=== PATIENT | female | born 1980 | race African-American/Black ===

== ENCOUNTER 2018-06-19 07:43 | Emergency (ER) | payer SELFPAY ==
--- NOTE | 2018-06-19 09:46 | RAD REPORT ---
EXAM DESCRIPTION: US - Extremity Nonvascular Complete - 06/19/2018 8:57 am CLINICAL HISTORY: left breast swelling and tenderness, rule out abscess COMPARISON: No comparisons TECHNIQUE: Real-time sonographic evaluation of the area of interest inferior left breast was perform ed. FINDINGS: Ill-defined 3.5 x 3.2 x 2.6 cm subcutaneous complex lesion is present in the area of inter est with surrounding blood flow, probably representing an abscess. Direct clinical evaluation is advi sed.
[2018-06-19] MEDS ORDERED: LIDOCAINE 2% MPF 5 ML VIAL ONE (10:12)
[2018-06-19] MEDS ORDERED: ONDANSETRON 4 MG (ODT) TAB ONE (10:35)
[2018-06-19] MEDS ORDERED: IBUPROFEN 400 MG TAB ONE (10:39)
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
--- NOTE | 2018-06-19 10:49 | EDPHYS ---
Physician Documentation [facility] Name: Rabia Sosa Age: 38 yrs Sex: Female : 1980 Arrival Date: 06/19/2018 Time: 07:46 Bed 5 Private MD: None, None ED Physician Jadiel Kirk HPI: 06/19 08:35 This 38 yrs old Black Female presents to ER via Ambulatory with complaints of Abscess, rn Congestion. 08:35 the patient presents with a swollen area of the left breast. Description: The affected rn area is small, localized, swollen. Onset: The symptoms/episode began/occurred 1 week(s) ago. Possible cause(s): unknown. Severity of symptoms: At their worst the symptoms were mild, in the emergency department the symptoms are unchanged. The patient has experienced a previous episode. Reports 1 week of swelling under left breast, no drainage, has been using compress and ointment, not improving, no fever, also reports headaches for 2 years, seen here before with normal ct but doesn't have insurance so hasn't followed up with neurology, no new symptoms. . 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 - Social history:: Smoking status: Patient/guardian denies using tobacco. - Ebola Screening: : Patient negative for fever greater than or equal to 101.5 degrees Fahrenheit, and additional compatible Ebola Virus Disease symptoms Patient denies exposure to infectious person Patient denies travel to an Ebola-affected area in the 21 days before illness onset No symptoms or risks identified at this time. - Family history:: not pertinent. - Hospitalizations: : No recent hospitalization is reported. ROS: 08:35 Constitutional: Negative for fever, chills, and weight loss, Eyes: Negative for injury, rn pain, redness, and discharge, Neck: Negative for injury, pain, and swelling, Cardiovascular: Negative for chest pain, palpitations, and edema, Respiratory: Negative for shortness of breath, cough, wheezing, and pleuritic chest pain, Abdomen/GI: Negative for abdominal pain, nausea, vomiting, diarrhea, and constipation, MS/Extremity: Negative for injury and deformity, Skin: Negative for injury Neuro: Negative for weakness, numbness, tingling, and seizure. Exam: 08:35 Constitutional: Overweight female, no acute distress, appears anxious and is tearful rn Chest/axilla: Under left breast area of 4cm ovoid area with induration, subcentimeter area of fluctuance in center of area. No head or drainage. Vital Signs: 07:50 BP 136 / 74; Pulse 100; Resp 20; Temp 98.7; Pulse Ox 100% ; Weight 181.44 kg; Height 5 bp ft. 11 in. (180.34 cm); Pain 10/10; 09:11 BP 149 / 80; Pulse 94; Resp 16; Pulse Ox 100% ; bp 07:50 Body Mass Index 55.79 (181.44 kg, 180.34 cm) bp Procedures: 10:47 I \T\ D: Incision and drainage was performed for an abscess of the left chest Prepped rn with Betadine, Anesthetized with 3 ml's 1% Lidocaine. Incised with #11 blade. Drained moderate amount purulent fluid. serosanguinous fluid. Packed with iodoform gauze, Dressing: sterile 4x4 gauze. MDM: 08:08 Patient medically screened. rn 10:48 Differential diagnosis: abscess. Data reviewed: vital signs, nurses notes, and as a rn result, I will discharge patient. Counseling: I had a detailed discussion with the patient and/or guardian regarding: the historical points, exam findings, and any diagnostic results supporting the discharge/admit diagnosis, the need for outpatient follow up, to return to the emergency department if symptoms worsen or persist or if there are any questions or concerns that arise at home. Special discussion: I discussed with the patient/guardian in detail that at this point there is no indication for admission to the hospital. It is understood, however, that if the symptoms persist or worsen the patient needs to return immediately for re-evaluation. 06/19 10:48 Order name: Wound Culture rn 06/19 08:57 Order name: Extremity Nonvascular Complete; Complete Time: 09:50 EDMS Administered Medications: 10:25 Drug: Zofran 4 mg Route: PO; jl7 10:51 Follow up: Response: No adverse reaction; Nausea is decreased jl7 10:52 Drug: Ibuprofen 800 mg Route: PO; jl7 10:59 Follow up: Response: Medication administered at discharge. jl7 Disposition: 06/19/18 10:48 Discharged to Home. Impression: Cutaneous abscess of chest wall. - Condition is Stable. - Discharge Instructions: Skin Abscess, Incision and Drainage, Wound Packing, Incision and Drainage, Care After. - Prescriptions for Clindamycin HCl 300 mg Oral Capsule - take 1 capsule by ORAL route every 6 hours for 10 days; 40 capsule. - Medication Reconciliation Form, Thank You Letter, Antibiotic Education, Prescription Opioid Use form. - Follow up: Private Physician; When: As needed; Reason: Recheck today's complaints, Re-evaluation by your physician. - Problem is an ongoing problem. - Symptoms have improved. Signatures: Dispatcher [employer] EDMS Jadiel Kirk MD MD rn Leal, Jahala, RN RN jl7 Peltier, Brian RN RN bp Corrections: (The following items were deleted from the chart) 08:42 08:36 Rp Exam Limited+[id number] ordered. EDOH EDMS 08:46 08:42 Follow Up Breast Axilla Ltd ordered. EDOH EDMS 08:57 08:46 BREAST/AXILLA, LIMITED ordered. EDOH EDMS 11:01 10:48 06/19/2018 10:48 Discharged to Home. Impression: Cutaneous abscess of chest wall. jl7 Condition is Stable. Forms are Medication Reconciliation Form, Thank You Letter, Antibiotic Education, Prescription Opioid Use. Follow up: Private Physician; When: As needed; Reason: Recheck today's complaints, Re-evaluation by your physician. Problem is an ongoing problem. Symptoms have improved. rn
[2018-06-19 11:13] VITALS: TEMP 98.7; O2SAT 100
[2018-06-19 11:15] VITALS: BP 149/80
== END 2018-06-19 11:01 | disposition home or self-care (01) ==
LOC: ER 07:43
PROC: 0J960ZZ Drainage of Chest Subcutaneous Tissue and Fascia, Open Approach (ICD-10-PCS; principal; 2018-06-19)
DX: L02.213 Cutaneous abscess of chest wall (principal); Z88.5 Allergy status to narcotic agent
CPT/HCPCS: 76881; 87070; 87077; 87186; 87205; 99285

== ENCOUNTER 2019-01-22 11:32 | Day surgery (SDC) | payer OTHER ==
[2019-01-22] MEDS: Ringers Lactate 1,000 ML IV ONE (11:52)
[2019-01-22 11:55] LABS: Absolute Monocytes 0.5 K/uL (0.1-1.3); Absolute Neutrophil 4.2 K/uL (1.8-8.0); Basophils % 0.9 % (0-1.3); Eosinophils % 6.6 % (0-4.4); Hematocrit 38.8 % (36.0-45.0); Lymphocytes % 35.5 % (15.3-44.8); MPV 9.3 fL (7.6-11.3); Monocytes % 6.2 % (3.3-12.3)
[2019-01-22] MEDS ORDERED: LIDOCAINE 1% MPF 30 ML VIAL ONE (12:13)
[2019-01-22] MEDS ORDERED: LIDOCAINE 1% W/EPI 1:100,000 MDV 50 ML VIAL ONE (12:13)
[2019-01-22] MEDS ORDERED: LIDOCAINE 1% MPF 5 ML VIAL ONE (12:18)
[2019-01-22] MEDS ORDERED: FENTANYL CITR 100 MCG/2 ML ONE ×3 (12:18→14:38)
[2019-01-22] MEDS ORDERED: PROPOFOL 200 MG/20 ML VIAL IV ONE ×2 (12:18→13:41)
[2019-01-22] MEDS ORDERED: KETOROLAC 30 MG/ML INJ ONE (12:56)
[2019-01-22] MEDS ORDERED: ONDANSETRON 4 MG/2 ML VIAL ONE (13:09)
[2019-01-22] MEDS ORDERED: SUCCINYLCHOLINE 20 MG/ML (10 ML) IV ONE (14:17)
--- NOTE | 2019-01-22 14:53 | EKG ---
Test Date: 2019-01-22 Test Time: 11:27:40 Steamfitter Supervisor: MAIKEL MEASUREMENT RESULTS: Intervals: Rate: 63 OK: 176 QRSD: 92 QT: 374 QTc: 382 [place]: P: 59 OK: 176 QRS: 40 T: 11 INTERPRETIVE STATEMENTS: Normal sinus rhythm Normal ECG Compared to ECG 04/10/2016 23:20:20 T-wave abnormality no longer present Electronically Signed On 01-22-19 14:52:53 CDT by Jonathan Lewis
[2019-01-22] MEDS ORDERED: ONDANSETRON HCL 40 MG/20 ML VIAL ONE (15:25)
[2019-01-22] MEDS ORDERED: PROMETHAZINE 25 MG/ML VIAL ONE (15:40)
--- NOTE | 2019-01-22 15:42 | P.BOP ---
Preoperative diagnosis: temporal arteritis (presumed) Postoperative diagnosis: temporal arteritis (presumed) Primary procedure: right temporal artery biopsy Tree Trimmer: KURT LAM Estimated blood loss: 10ml Specimen: Right temporal artery Anesthesia: General Complications: None Implants: none Fluids & blood products: see anesthesia record Transferred to: Recovery Room Condition: Good
[2019-01-22 16:43] VITALS: TEMP 97.3; O2SAT 100
[2019-01-22 17:04] VITALS: BP 125/67
--- NOTE | 2019-02-02 03:52 | OP ---
Date of Procedure: 01/22/2019 Surgeon: Becca Burgos MD Sheet Heater: Heidy Hodge Preoperative Diagnosis: Presumed temporal arteritis. Postoperative Diagnosis: Presumed temporal arteritis. Procedure: Right temporal artery biopsy. Estimated Blood Loss: 10 mL. Specimen: Right temporal artery fragment. Anesthesia: General. Complications: None. Findings: Procedure was more difficult than average due to the patient's obesity. Indication For Procedure: Ms. Sosa presented to the E[facility] Clinic with chronic headache and right temporal tenderness. Her sedimentation rate was mildly elevated at 28, but due to her clinical presentation, decision was made to proceed with temporal artery biopsy to evaluate for temporal arteritis. Presumptive treatment of temporal arteritis was deferred in light of the patient 's diagnosis of diabetes mellitus and which oral steroid use carried a high risk for severe hyperglycemia. The risks, benefits, and alternatives to the procedure were discussed with the patient. Procedure In Detail: The patient was brought to the operating room. She was placed under general anesthesia. Her intubation was difficult and complicated by severe morbid obesity with the patient weight greater than 400 pounds. After successful intubation, the head of bed was turned approximately 45 degrees for better exposure of the right side of the face. The face, bahai, and neck were prepped with Betadine and draped in a sterile fashion. Doppler was used to detect blood flow and guide initial incision. Strong signal was found in a single point of the bahai and a small incision was initially made in this area. The skin and subcutaneous tissue were carefully dissected, but the artery was very difficult to locate. Repeated use of Doppler revealed signal. A small venous vessel was found and located with Doppler. This had a typical venous signal, but with compression a strong arterial Doppler signal was located. The decision was made to ligate this vein in order to better dissect in this area. After thorough dissection in this area, the vessel could not be located and on further inspection, the plane of dissection was deeper than intended and was not consistent with the location of the temporal artery. The incision was then lengthened in order to provide a larger field of dissection. Palpable pulse in front of the helix was noted and the posterior skin flap was elevated in order to provide better visualization of this area after retraction of the posterior skin flap. The artery was located and a 1 to 1.5 cm section of the artery was dissected. The artery was ligated and tied and the specimen was sent to pathology for further evaluation. The wound bed was thoroughly irrigated and the incision was closed in a layered fashion using resorbable sutures. The patient was then returned to care of Anesthesia for awakening and extubation in the operating room, which proceeded without difficulty. The patient will be dispositioned pending results of the biopsy. LIEN Voice ID: [id number] Report ID: [id number] DELBERT
== END 2019-01-22 17:10 | disposition home or self-care (01) ==
LOC: OR 11:32
PROVIDERS: ATTEND Otolaryngology
PROC: 03BS0ZX Excision of Right Temporal Artery, Open Approach, Diagnostic (ICD-10-PCS; principal; 2019-01-22 12:00)
DX: R51 Headache (principal); K21.9 Gastro-esophageal reflux disease without esophagitis; E66.01 Morbid (severe) obesity due to excess calories; Z68.44 Body mass index [BMI] 60.0-69.9, adult; F17.210 Nicotine dependence, cigarettes, uncomplicated; Z79.899 Other long term (current) drug therapy
CPT/HCPCS: 36415; 81025; 82962; 85025; 88305; 93005; J0330; J2405; J2550; J2704; J3010

== ENCOUNTER 2023-02-03 13:44 | Emergency (ER) | payer BC ==
--- OUTSIDE RECORDS SUMMARY | 2023-02-03 13:51 | XMS REPORT | Continuity of Care Document ---
:1980 Author Organization [facility] t Address [address] [place] [address] Care Team Providers Name Role Phone JEANNINE MCNAMARA Primary Care Physician Unavailable SHERRILL BAH Attending Clinician Unavailable KALA SALAZAR Attending Clinician Unavailable IVORY MCKEE Attending Clinician Unavailable Doctor Unassigned, [place] Attending Clinician Unavailable STEVE ARAUZ Attending Clinician Unavailable Steve Arauz MD Attending Clinician Jeannine Mcnamara V Attending Clinician Unavailable Marcia ESPINOSA, [facility] Attending Clinician ABBE CARLTON Attending Clinician Unavailable CARLITOS_MARQUIS_Lefty_Alicia Attending Clinician Unavailable Guilherme_Didier Attending Clinician Unavailable Sherrill Bah MD Attending Clinician KAUR TREJO Attending Clinician Unavailable Only, Adc Test Attending Clinician Unavailable Pob, [facility] Main Attending Clinician Unavailable BALWINDER JIMENEZ Attending Clinician Unavailable Balwinder Jimenez DO Attending Clinician MAGUI LOCKHART Attending Clinician Unavailable Jah ESPINOSA, Sabina Garcia Attending Clinician Magui oLckhart PA-C Attending Clinician Brendon LEDESMA, Rubi Li Attending Clinician Clyde ESPINOSA, [place] Cedeno Attending Clinician Caden Monroe Attending Clinician Logan ESPINOSA, Pat Attending Clinician CADEN MOSCOSO Attending Clinician Unavailable SHERRILL BAH Admitting Clinician Unavailable STEVE ARAUZ Admitting Clinician Unavailable Jeannine Mcnamara V Admitting Clinician Unavailable [facility] Admitting Clinician Unavailable Guilherme_Didier Admitting Clinician Unavailable Sherrill Bah MD Admitting Clinician Jah ESPINOSA, Sabina Garcia Admitting Clinician Logan ESPINOSA, Pat Admitting Clinician Payers Payer Name Policy Type Policy Number Effective Date Expiration Date S donaldo [employer] [place] [id number] 2019 00:00:00 [place] [id number] 2019 00:00:00 [place] Problems Condition Condition Condition Status Onset Resolution Last Treating Co mments Source Name Details Category Date Date Treatment Clinician Date Type 2 Type 2 Problem Active [place] diabetes Diabetes 2-18 Family mellitus Mellitus 00:00: Practi c 00 e Gastroesop Gastroesop Problem Active V illage hageal hageal 2-18 Family reflux Reflux 00:00: Practic disease Disease 00 e Morbid Morbid Disease Active Univers obesity obesity 09-04 [place] of with [place] mass index 00 Me dical of 50 or of 50 or Branch higher higher Ovarian Ovarian Disease Active Univers torsion torsion 1-01 ity of 00:00: [place] 00 Medical Branch Right Right Disease Active Univers lower lower 09-03 ity of quadrant quadrant 00:00: [place] abdominal abdominal 00 Medi brandy pain pain Branch Cellulitis Cellulitis Disease Active 2019-09 U nivers of right of right 106 ity of lower lower 00:00: [place] extremity extremity 00 Medi brandy Branch Papanicola Papanicola Disease Active Overview : Univers ou smear ou smear 09-10 Formattin ity of of cervix of cervix 00:00: [place] of this [place] with high with high 00 note Medi brandy grade grade might be Branch squamous squamous different intraepith intraepith from the elial elial original. lesion lesion 06/2013- (HGSIL) (HGSIL) LEEP - negative Excessive Excessive Disease Active Overview: Univers or or 108 Formattin ity of frequent frequent 00:00: g of this [place]ammad as menstruati menstruati 00 note Me dical on on might be Branch different from the original. emb 09/10/2013 NO SHOW NO SHOW Disease Active Univers 8-12 ity of 00:00: [place] 00 Medical Branch Eosinophil Eosinophil Disease Active U nivers ia ia 7-06 ity of 00:00: [place] 00 Medical Branch Follow-up Follow-up Disease Active Overview: Univers examinatio examinatio 8-14 Formattin ity of n, n, 00:00: g of this [place] following following 00 note Medi brandy other other might be Branch surgery surgery different from the original. F/U for infected incision and hospitali zation 04/02-02/2007 Elevated Elevated Disease Active Unive rs blood blood 6-20 ity of pressure pressure 00:00: [place] reading reading 00 Medical without without Branch diagnosis diagnosis of of hypertensi hypertensi on on Headache Headache Problem Active 2021-01-31 Memoria (finding) (finding) 00:27:00 l Active [place] Problem 01/31/2021 [facility] Gastritis Gastritis Problem Active 2021-01-31 Memoria (disorder) (disorder) 00:27:00 l Active [place] Problem 01/31/2021 [facility] Allergies, Adverse Reactions, Alerts Allergy Allergy Status Severity Reaction(s) Onset Inactive Treating Comm ents Source Name Type Date Date Clinician Codeine Propensi Active Rash Methodi ty to 4-18 st adverse 00:00: Hospita reaction 00 l s to drug CODEINE DRUG Active Hives Univers INGREDI 6-20 ity of 00:00: [place] 00 Medical Branch Codeine Propensi Active Hives Univers ty to 6-20 ity of adverse 00:00: [place] reaction 00 Medical s Branch codeine codeine Active Moderate Ag De [facility] Social History Social Habit Start Date Stop Date Quantity Comments Source [facility] History of tobacco Smokes tobacco [facility] use daily Hospital Exposure to 2022-10-21 2022-10-31 Not sure University of SARS-CoV-2 (event) 00:00:00 07:41:00 [facility] History of Social 2022-06-01 2022-06-[address] function 00:00:00 00:00:00 Hospital Alcohol intake 2022-01-06 2022-01-06 Lifetime [facility] 00:00:[facility] 00:00:00 [facility] (finding) Tobacco use and 2020-12-31 2020-12-31 Smokeless tobacco Un iversity of exposure 00:00:00 00:00:00 non-user [facility] Tobacco Comment 2020-12-31 2020-12-31 smokes 10 Universit y of 00:00:00 00:00:00 cigarettes per [facility] day Branch Sex Ass[birth year] At [birth year] [facility] 00:00:00 00:00:00 Hospital Smoking Status Start Date Stop Date Source Heavy Tobacco Smoker [facility] Social History 2020-12-24 19:03:30 [facility] Medications Ordered Filled Start Stop Current Ordering Indication Dosage Frequency Signature Comments Components Source Medication Medication Date Date Medication? Clinician (SIG) Name Name NaCl 0.9% 2022- No 1000mL at 999 Uni vers (NS) bolus 10-31-28 mL/hr, ity of infusion 20:45: 21:30 1,000 mL, Hammad as 1,000 mL 00 :00 IV Medical Piggyback, Branch ONCE, 1 dose, On Sun10/31/22 at 1445, STAT ondansetron 2022- No 8mg 8 mg, Slow Univers (ZOFRAN 10-31 IV Push, ity of (PF)) 20:30: 20:34 ONCE, 1 [place] injection 8 00 :00 dose, On Medi brandy mg 10/31/22 at 1430, RAGHAVENDRA FENTanyl PF 2022- No 50ug 50 mcg, Un jessica (SUBLIMAZE 10-31 Slow IV ity o f (PF)) 20:00: 20:25 Push, [place] injection 00 :00 ONCE, 1 Medical 50 mcg dose, On Sun10/31/22 at 1400, STAT metroNIDAZO 2022- No 500mg 500 mg, U nivers LE (FLAGYL) 10-31 Oral, ONCE i ty of tablet 500 18:30: 18:10 NOW, 1 [place] mg 00 :00 dose, On Medical 10/31/22 at 1230, RAGHAVENDRA
Re ason for Anti-Infec tive: Documented Infection< br>Documen ivis Infection Site: Abdominal< br>Duratio n of Therapy: 7 days FENTanyl PF 2022- No 50ug 50 mcg, Un jessica (SUBLIMAZE 10-31 Slow IV ity o f (PF)) 18:00: 17:18 Push, [place] injection 00 :00 ONCE, 1 Medical 50 mcg dose, On Sun10/31/22 at 1200, Routine levoFLOXaci 2022- No 750mg 750 mg, IV Univers n in D5W 10-31 Piggyback, ity of (LEVAQUIN) 17:45: 19:55 ONCE, 1 [place] as 750 mg/150 00 :00 dose, On Medic al mL [facility] Piggyback 10/31/22 at 750 mg 1145, Administer over 90 Minutes, 150 mL
R elif for Anti-Infec tive: Documented Infection< br>Documen ivis Infection Site: Abdominal< br>Duratio n of Therapy: 7 days iopamidol 2022- No [id number] 100mL 100 mL, Univers (ISOVUE 10-31 Intravenou ity o f 370-500 mL) 16:45: 16:45 s, ONCE, 1 [place] injection 00 :00 dose, On Medica l 100 mL Tue Branch 10/31/22 at 1045, Routine FENTanyl PF 2022- No 50ug 50 mcg, Un jessica (SUBLIMAZE 10-31 Slow IV ity o f (PF)) 15:45: 16:06 Push, [place] injection 00 :00 ONCE, 1 Medical 50 mcg dose, On Branch 10/31/22 at 0945, STAT ondansetron Yes [id number] 4mg Take 1 Univers 4 mg 10-31 tablet by ity of disintegrat 00:00: mouth [place] ing tablet 00 every 8 Medica l (eight) Branch hours as needed for Nausea and Vomiting (N/V). ondansetron Yes [id number] 4mg Take 1 Univers 4 mg - tablet by ity of disintegrat 00:00: mouth [place] ing tablet 00 every 8 Medica l (eight) Branch hours as needed for Nausea and Vomiting (N/V). ciprofloxac 2022- No [id number] 500mg Take 1 Univers in HCl 500 10-31 tablet by ity of mg tablet 00:00: 05:59 mouth in [place] as 00 :00 the Medical morning Branch and 1 tablet in the evening. Do all this for 10 days. metroNIDAZO 2022- No [id number] 500mg Take 1 Univers LE 500 mg 10-3111 tablet by ity of tablet 00:00: 05:59 mouth in [place] 00 :00 the Medical morning Branch and 1 tablet at noon and 1 tablet in the evening. Do all this for 10 days. docusate 2022- No [id number] 100mg Take 1 Univers (COLACE) 10-31-08 capsule by ity of 100 mg 00:00: 05:59 mouth in [place] capsule 00 :00 the Medical morning Branch and 1 capsule in the evening. Do all this for 7 days. HYDROcodone 2022- No [id number] 1{tbl} Take 1 U nivers -acetaminop 10-31-08 tablet by it y of hen 5-325 00:00: 05:59 mouth [place] mg tablet 00 :00 every 6 Medical (six) Branch hours as needed for Pain (scale 7-10) for up to 7 days. Indication s: acute pain traMADoL 50 2022- No [id number] 50mg Take 1 Uni vers mg tablet -31 10- tablet by ity of 00:00: 00:00 mouth [place] 00 :00 every 6 Medical (six) Branch hours as needed for Pain (scale 7-10) for up to 7 days. Indication s: acute pain esomeprazol Yes 40mg QD Take 40 mg Methodi e (NexIUM) 4-[address] 40 MG 13:02: daily Hospita capsule 04 before l breakfast. esomeprazol Yes 40mg Take 40 mg Univers e (NEXIUM) 6-28 by mouth ity o f 40 mg 18:28: daily with [place] capsule 41 breakfast. Medica l Branch topiramate Yes 50mg Take 50 mg U nivers (TOPAMAX) 6-28 by mouth ity of 25 mg 18:28: daily. [place] tablet 41 Medical Branch metformin 0 Yes 500mg Take 500 Uni vers HCl 6-28 mg by ity of (METFORMIN 18:28: mouth 2 [place] ORAL) 41 (two) Medical times Branch daily. esomeprazol Yes 40mg Take 40 mg Univers e (NEXIUM) 6-28 by mouth ity o f 40 mg 13:28: daily with [place] capsule 41 breakfast. Medica l Branch topiramate Yes 50mg Take 50 mg U nivers (TOPAMAX) 6-28 by mouth ity of 25 mg 13:28: daily. [place] tablet 41 Medical Branch metformin 0 Yes 500mg Take 500 Uni vers HCl 6-28 mg by ity of (METFORMIN 13:28: mouth 2 [place] ORAL) 41 (two) Medical times Branch daily. esomeprazol Yes 40mg Take 40 mg Univers e (NEXIUM) 6-28 by mouth ity o f 40 mg 13:28: daily with [place] capsule 41 breakfast. Medica l Branch topiramate Yes 50mg Take 50 mg U nivers (TOPAMAX) 6-28 by mouth ity of 25 mg 13:28: daily. [place] tablet 41 Medical Branch metformin 2021-0 Yes 500mg Take 500 Uni vers HCl 6-28 mg by ity of (METFORMIN 13:28: mouth 2 [place] ORAL) 41 (two) Medical times Branch daily. topiramate 2020-0 Yes 50mg Take 50 mg U nivers (TOPAMAX) 5-05 by mouth ity of 25 mg 16:52: daily. [place] tablet 25 Medical Branch metformin 2020-0 Yes 500mg Take 500 Uni vers HCl 5-05 mg by ity of (METFORMIN 16:52: mouth 2 [place] ORAL) 25 (two) Medical times Branch daily. topiramate 2020-0 Yes 50mg Take 50 mg U nivers (TOPAMAX) 5-05 by mouth ity of 25 mg 16:52: daily. [place] tablet 25 Medical Branch metformin 2020-0 Yes 500mg Take 500 Uni vers HCl 5-05 mg by ity of (METFORMIN 16:52: mouth 2 [place] ORAL) 25 (two) Medical times Branch daily. simethicone 2020-0 Yes PRN, Univer s (GAS RELIEF 5-05 Starting ity of (SIMETHICON 16:08: Sun01/05/21 [place] [facility])) 40 00 at 1108, Medical mg/0.6 mL Until Branch drops Discontinu ed, Routine, Intra-op simethicone 2020-0 Yes PRN, Univer s (GAS RELIEF 5-05 Starting ity of (SIMETHICON 16:08: Sun01/05/21 [place] [facility])) 40 00 at 1108, Medical mg/0.6 mL Until Branch drops Discontinu ed, Routine, Intra-op lactated 2020- No 1000mL at 42 Unive rs ringers IV 5-05 05-05 mL/hr, ity of infusion 14:15: 14:33 1,000 mL, Hammad as 1,000 mL 00 :00 IV Medical Infusion, Branch ONCE, 1 dose, Sun01/05/21 at 0915, Routine, DSU Pre-op lactated 2020- No 1000mL at 42 Unive rs ringers IV 5-05 05-05 mL/hr, ity of infusion 14:15: 14:33 1,000 mL, [place] as 1,000 mL 00 :00 IV Medical Infusion, Branch ONCE, 1 dose, Sun01/05/21 at 0915, Routine, DSU Pre-op esomeprazol 2020-0 Yes 40mg Take 40 mg Univers e (NEXIUM) 5-05 by mouth ity o f 40 mg 14:00: daily with [place] capsule 14 breakfast. Medica l Branch esomeprazol 2020-0 Yes 40mg Take 40 mg Univers e (NEXIUM) 5-05 by mouth ity o f 40 mg 14:00: daily with [place] capsule 14 breakfast. Medica l Branch metformin 2020-0 Yes 500mg Take 500 Uni vers HCl 4-30 mg by ity of (METFORMIN 17:37: mouth 2 [place] ORAL) 21 (two) Medical times Branch daily. metformin 2020-0 Yes 500mg Take 500 Uni vers HCl 4-30 mg by ity of (METFORMIN 17:37: mouth 2 [place] ORAL) 21 (two) Medical times Branch daily. topiramate 2020-0 Yes 50mg Take 50 mg U nivers (TOPAMAX) 4-30 by mouth ity of 25 mg 15:58: daily. [place] tablet 05 Medical Branch topiramate 0 Yes 50mg Take 50 mg U nivers (TOPAMAX) 4-30 by mouth ity of 25 mg 15:58: daily. [place] tablet 05 Medical Branch topiramate 0 Yes 50 mg = 2 Me moria 25 MG Oral 4-23 tab, PO, l Tablet 19:28: Bedtime, # Annmarie nn [Topamax] 00 60 tab, 2 Refill(s), Pharmacy: [id number], 180.34, cm, 04/03/19 11:35:00 CDT, Height, 197.273, kg, 12/24/20 14:03:00 CDT, Weight topiramate 0 Yes 50 mg = 2 Me moria 25 MG Oral 4-23 tab, PO, l Tablet 19:28: Bedtime, # Annmarie nn [Topamax] 00 60 tab, 2 Refill(s), Pharmacy: [facility] #[id number], 180.34, cm, 04/03/19 11:35:00 CDT, Height, 197.273, kg, 12/24/20 14:03:00 CDT, Weight topiramate 2020-0 Yes 50 mg = 2 Me moria 25 MG Oral 4-23 tab, PO, l Tablet 19:28: Bedtime, # Annmarie nn [Topamax] 00 60 tab, 2 Refill(s), Pharmacy: [id number], 180.34, cm, 04/03/19 11:35:00 CDT, Height, 197.273, kg, 12/24/20 14:03:00 CDT, Weight esomeprazol 0 Yes 40mg Take 40 mg Univers e (NEXIUM) 1-13 by mouth ity o f 40 mg 19:57: daily with [place] capsule 49 breakfast. Medica l Branch esomeprazol 0 Yes 40mg Take 40 mg Univers e (NEXIUM) 1-13 by mouth ity o f 40 mg 19:57: daily with [place] capsule 49 breakfast. Medica l Branch esomeprazol 0 Yes 40mg Take 40 mg Univers e (NEXIUM) 1-13 by mouth ity o f 40 mg 19:57: daily with [place] capsule 49 breakfast. Medica l Branch esomeprazol Yes 40mg Take 40 mg Univers e (NEXIUM) 1-13 by mouth ity o f 40 mg 19:57: daily with [place] capsule 49 breakfast. Medica l Branch esomeprazol 0 Yes 40mg Take 40 mg Univers e (NEXIUM) 1-13 by mouth ity o f 40 mg 19:57: daily with [place] capsule 49 breakfast. Medica l Branch esomeprazol Yes 40mg Take 40 mg Univers e (NEXIUM) 1-13 by mouth ity o f 40 mg 19:57: daily with [place] capsule 49 breakfast. Medica l Branch esomeprazol 0 Yes 40mg Take 40 mg Univers e (NEXIUM) 1-13 by mouth ity o f 40 mg 19:57: daily with [place] capsule 49 breakfast. Medica l Branch esomeprazol 0 Yes 40mg Take 40 mg Univers e (NEXIUM) 1-01 by mouth ity o f 40 mg 23:22: daily with [place] capsule 06 breakfast. Medica l Branch esomeprazol 0 Yes 40mg Take 40 mg Univers e (NEXIUM) 1-01 by mouth ity o f 40 mg 23:22: daily with [place] capsule 06 breakfast. Medica l Branch Bupivacaine 2020-0 Yes PRN, Univer s -Epinephrin 09-03 Starting ity of e 21:59: Sun09/03/20 [place] (MARCAINE-E 00 at 1559, Medi brandy PINEPHRINE) Until Branch 0.25 Discontinu %-1:200,000 ed, injection Routine, Intra-op FENTanyl PF Yes 25ug 25 mcg, Uni vers (SUBLIMAZE 09-03 Slow IV ity of (PF)) 21:44: Push, [place] injection 49 Q5MIN PRN, Medi brandy 25 mcg 4 doses, Branch Starting Sun09/03/20 at 1544, Until Discontinu ed, Routine, Pain (scale 7-10), PACU FENTanyl PF Yes 25ug 25 mcg, Uni vers (SUBLIMAZE 09-03 Slow IV ity of (PF)) 21:44: Push, [place] injection 49 Q5MIN PRN, Medi brandy 25 mcg 4 doses, Branch Starting Sun09/03/20 at 1544, Until Discontinu ed, Routine, Pain (scale 4-6), PACU ondansetron 2020- No 4mg 4 mg, Slow Univers (ZOFRAN 09-03 IV Push, ity of (PF)) 21:44: 22:14 PRN, 1 injection 4 49 :00 dose, Medical mg Starting Branch Sun09/03/20 at 1544, Until Discontinu ed, Routine, Nausea and Vomiting (N/V), PACU sodium 0 Yes PRN, Univers chloride 09-03 Starting ity of 0.9 % 20:32: Sun09/03/20 [place] irrigation 00 at 1432, Medic al solution Until Branch Discontinu ed, Intra-op FENTanyl PF 0 202- No 50ug 50 mcg, Un jessica (SUBLIMAZE 09-03 Slow IV ity o f (PF)) 19:30: 18:48 Push, [place] injection 00 :00 ONCE, 1 Medical 50 mcg dose, Fri Branch 09/03/20 at 1330, STAT morpHINE 2020-0 2020- No 4mg 4 mg, Slow Un jessica injection 4 09-03 IV Push, ity of mg 16:30: 15:25 ONCE, 1 [place] 00 :00 dose, Fri Medical 09/03/20 at Branch 1030, STAT ondansetron 2020- No 4mg 4 mg, Slow Univers (ZOFRAN 09-03 IV Push, ity of (PF)) 15:30: 15:38 Administer [place] injection 4 00 :00 over 15 Medic al mg Minutes, Branch ONCE, 1 dose, 09/03/20 at 0930, STAT NaCl 0.9% 2020- No 1000mL at 999 Uni vers (NS) bolus 09-03 mL/hr, ity of infusion 15:15: 15:12 1,000 mL, Hammad as 1,000 mL 00 :00 IV Medical Infusion, Branch ONCE, 1 dose, 09/03/20 at 0915, RAGHAVENDRA simethicone Yes [id number] 80mg Take 1 Univers 80 mg 09-03 [id number] tablet by ity of chewable 00:00: mouth [place] tablet 00 after Medical meals and Branch at bedtime. ibuprofen Yes [id number] 600mg Take 1 Univers 600 mg 09-03 [id number] tablet by ity of tablet 00:00: mouth [place] 00 every 6 Medical (six) Branch hours as needed for Pain (scale 1-3) or Pain (scale 4-6). acetaminoph Yes [id number] 650mg Take 2 Univers en 09-03 [id number] tablets by ity of (TYLENOL) 00:00: mouth [place] 325 mg 00 every 6 Medical tablet (six) Branch hours as needed for Pain (scale 1-3) or Pain (scale 4-6). simethicone Yes [id number] 80mg Take 1 Univers 80 mg - [id number] tablet by ity of chewable 00:00: mouth [place] tablet 00 after Medical meals and Branch at bedtime. ibuprofen Yes [id number] 600mg Take 1 Univers 600 mg - [id number] tablet by ity of tablet 00:00: mouth [place] 00 every 6 Medical (six) Branch hours as needed for Pain (scale 1-3) or Pain (scale 4-6). acetaminoph Yes [id number] 650mg Take 2 Univers en - [id number] tablets by ity of (TYLENOL) 00:00: mouth [place] 325 mg 00 every 6 Medical tablet (six) Branch hours as needed for Pain (scale 1-3) or Pain (scale 4-6). simethicone 2020-0 Yes [id number] 80mg Take 1 Univers 80 mg 1-01 [id number] tablet by ity of chewable 00:00: mouth [place] tablet 00 after Medical meals and Branch at bedtime. ibuprofen Yes [id number] 600mg Take 1 Univers 600 mg 1-01 [id number] tablet by ity of tablet 00:00: mouth [place] 00 every 6 Medical (six) Branch hours as needed for Pain (scale 1-3) or Pain (scale 4-6). acetaminoph Yes [id number] 650mg Take 2 Univers en 1- [id number] tablets by ity of (TYLENOL) 00:00: mouth [place] 325 mg 00 every 6 Medical tablet (six) Branch hours as needed for Pain (scale 1-3) or Pain (scale 4-6). simethicone Yes [id number] 80mg Take 1 Univers 80 mg 1- 473596 tablet by ity of chewable 00:00: mouth [place] tablet 00 after Medical meals and Branch at bedtime. ibuprofen Yes [id number] 600mg Take 1 Univers 600 mg 1- [id number] tablet by ity of tablet 00:00: mouth [place] 00 every 6 Medical (six) Branch hours as needed for Pain (scale 1-3) or Pain (scale 4-6). acetaminoph Yes [id number] 650mg Take 2 Univers en - 175115 tablets by ity of (TYLENOL) 00:00: mouth [place] 325 mg 00 every 6 Medical tablet (six) Branch hours as needed for Pain (scale 1-3) or Pain (scale 4-6). simethicone Yes [id number] 80mg Take 1 Univers 80 mg 1-01 [id number] tablet by ity of chewable 00:00: mouth [place] tablet 00 after Medical meals and Branch at bedtime. ibuprofen Yes [id number] 600mg Take 1 Univers 600 mg 1-01 [id number] tablet by ity of tablet 00:00: mouth [place] 00 every 6 Medical (six) Branch hours as needed for Pain (scale 1-3) or Pain (scale 4-6). acetaminoph Yes [id number] 650mg Take 2 Univers en 1- 654359 tablets by ity of (TYLENOL) 00:00: mouth [place] 325 mg 00 every 6 Medical tablet (six) Branch hours as needed for Pain (scale 1-3) or Pain (scale 4-6). simethicone Yes [id number] 80mg Take 1 Univers 80 mg 1-01 [id number] tablet by ity of chewable 00:00: mouth [place] tablet 00 after Medical meals and Branch at bedtime. ibuprofen Yes [id number] 600mg Take 1 Univers 600 mg 1- 376823 tablet by ity of tablet 00:00: mouth [place] 00 every 6 Medical (six) Branch hours as needed for Pain (scale 1-3) or Pain (scale 4-6). acetaminoph Yes [id number] 650mg Take 2 Univers en 1- 879315 tablets by ity of (TYLENOL) 00:00: mouth [place] 325 mg 00 every 6 Medical tablet (six) Branch hours as needed for Pain (scale 1-3) or Pain (scale 4-6). simethicone Yes [id number] 80mg Take 1 Univers 80 mg 1- 506132 tablet by ity of chewable 00:00: mouth [place] tablet 00 after Medical meals and Branch at bedtime. ibuprofen Yes [id number] 600mg Take 1 Univers 600 mg 1- [id number] tablet by ity of tablet 00:00: mouth [place] 00 every 6 Medical (six) Branch hours as needed for Pain (scale 1-3) or Pain (scale 4-6). acetaminoph Yes [id number] 650mg Take 2 Univers en 1- 644190 tablets by ity of (TYLENOL) 00:00: mouth [place] 325 mg 00 every 6 Medical tablet (six) Branch hours as needed for Pain (scale 1-3) or Pain (scale 4-6). simethicone Yes [id number] 80mg Take 1 Univers 80 mg 1-01 [id number] tablet by ity of chewable 00:00: mouth [place] tablet 00 after Medical meals and Branch at bedtime. ibuprofen Yes [id number] 600mg Take 1 Univers 600 mg 1-01 [id number] tablet by ity of tablet 00:00: mouth [place] 00 every 6 Medical (six) Branch hours as needed for Pain (scale 1-3) or Pain (scale 4-6). acetaminoph 0 Yes [id number] 650mg Take 2 Univers en 1- 911314 tablets by ity of (TYLENOL) 00:00: mouth [place] 325 mg 00 every 6 Medical tablet (six) Branch hours as needed for Pain (scale 1-3) or Pain (scale 4-6). simethicone Yes [id number] 80mg Take 1 Univers 80 mg 1- 456549 tablet by ity of chewable 00:00: mouth [place] tablet 00 after Medical meals and Branch at bedtime. ibuprofen 0 Yes [id number] 600mg Take 1 Univers 600 mg 1- 162607 tablet by ity of tablet 00:00: mouth [place] 00 every 6 Medical (six) Branch hours as needed for Pain (scale 1-3) or Pain (scale 4-6). acetaminoph Yes [id number] 650mg Take 2 Univers en 1- 131396 tablets by ity of (TYLENOL) 00:00: mouth [place] 325 mg 00 every 6 Medical tablet (six) Branch hours as needed for Pain (scale 1-3) or Pain (scale 4-6). simethicone Yes [id number] 80mg Take 1 Univers 80 mg 1- 482250 tablet by ity of chewable 00:00: mouth [place] tablet 00 after Medical meals and Branch at bedtime. ibuprofen 0 Yes [id number] 600mg Take 1 Univers 600 mg 1- 536111 tablet by ity of tablet 00:00: mouth [place] 00 every 6 Medical (six) Branch hours as needed for Pain (scale 1-3) or Pain (scale 4-6). acetaminoph 0 Yes [id number] 650mg Take 2 Univers en 1- 314999 tablets by ity of (TYLENOL) 00:00: mouth [place] 325 mg 00 every 6 Medical tablet (six) Branch hours as needed for Pain (scale 1-3) or Pain (scale 4-6). simethicone Yes [id number] 80mg Take 1 Univers 80 mg 1- 170080 tablet by ity of chewable 00:00: mouth [place] tablet 00 after Medical meals and Branch at bedtime. ibuprofen 0 Yes [id number] 600mg Take 1 Univers 600 mg 1- [id number] tablet by ity of tablet 00:00: mouth [place] 00 every 6 Medical (six) Branch hours as needed for Pain (scale 1-3) or Pain (scale 4-6). acetaminoph Yes [id number] 650mg Take 2 Univers en 1- 377167 tablets by ity of (TYLENOL) 00:00: mouth [place] 325 mg 00 every 6 Medical tablet (six) Branch hours as needed for Pain (scale 1-3) or Pain (scale 4-6). simethicone Yes [id number] 80mg Take 1 Univers 80 mg 1- 400439 tablet by ity of chewable 00:00: mouth [place] tablet 00 after Medical meals and Branch at bedtime. ibuprofen Yes [id number] 600mg Take 1 Univers 600 mg 1- 624657 tablet by ity of tablet 00:00: mouth [place] 00 every 6 Medical (six) Branch hours as needed for Pain (scale 1-3) or Pain (scale 4-6). acetaminoph Yes [id number] 650mg Take 2 Univers en - [id number] tablets by ity of (TYLENOL) 00:00: mouth [place] 325 mg 00 every 6 Medical tablet (six) Branch hours as needed for Pain (scale 1-3) or Pain (scale 4-6). simethicone 0 Yes [id number] 80mg Take 1 [facility] 80 mg 1- [id number] tablet by ity of chewable 00:00: mouth [place] tablet 00 after Medical meals and Branch at bedtime. ibuprofen 0 Yes [id number] 600mg Take 1 [facility] 600 mg 1- [id number] tablet by ity of tablet 00:00: mouth [place] 00 every 6 Medical (six) Branch hours as needed for Pain (scale 1-3) or Pain (scale 4-6). acetaminoph 0 Yes [id number] 650mg Take 2 Univers en 1- [id number] tablets by ity of (TYLENOL) 00:00: mouth [place] 325 mg 00 every 6 Medical tablet (six) Branch hours as needed for Pain (scale 1-3) or Pain (scale 4-6). simethicone Yes [id number] 80mg Take 1 [facility] 80 mg 09-03 [id number] tablet by ity of chewable 00:00: mouth [place] tablet 00 after Medical meals and Branch at bedtime. ibuprofen Yes [id number] 600mg Take 1 [facility] 600 mg 09-03 [id number] tablet by ity of tablet 00:00: mouth [place] 00 every 6 Medical (six) Branch hours as needed for Pain (scale 1-3) or Pain (scale 4-6). acetaminoph Yes [id number] 650mg Take 2 Univers en 09-03 [id number] tablets by ity of (TYLENOL) 00:00: mouth [place] 325 mg 00 every 6 Medical tablet (six) Branch hours as needed for Pain (scale 1-3) or Pain (scale 4-6). lisinopriL 2019-09 2020- No [id number] 10mg Take 1 Univers 10 mg 09-1110 tablet by ity of tablet 00:00: 05:59 mouth [place] 00 :00 daily for Medical 30 days. Branch lisinopriL 2019-09 2020- No [id number] 10mg Take 1 Univers 10 mg 09-1110 tablet by ity of tablet 00:00: 05:59 mouth [place] 00 :00 daily for Medical 30 days. Branch esomeprazol 2019-09 Yes 40mg Take 40 mg Univers e (NEXIUM) 08 by mouth ity o f 40 mg 20:23: daily with [place] capsule 13 breakfast. Medica l Branch esomeprazol 2019-09 Yes 40mg Take 40 mg Univers e (NEXIUM) -08 by mouth ity o f 40 mg 20:23: daily with [place] capsule 13 breakfast. Medica l Branch esomeprazol 2019-09 Yes 40mg Take 40 mg Univers e (NEXIUM) -08 by mouth ity o f 40 mg 20:23: daily with [place] capsule 13 breakfast. Medica l Branch vancomycin 2019-09 2020- No 15mg/kg 1,500 mg Univers 1500 mg in 09-10 11-12 (rounded ity of NS 500 mL 16:30: 08:29 from [place] IV 00 :00 2,986.5 mg Medical Piggyback = 15 mg/kg Bran ch RTU 1,500 ?199.1 mg kg), IV Piggyback, Q8H ABX, 11 doses, First dose (after last modificati on) on Sun07/11/20 at 1030, Last dose on Sun07/14/20 at 1830
Re ason for Anti-Infec tive: Documented Infection< br>Documen ivis Infection Site: Skin / Soft Tissue<br& gt;Duratio n of Therapy: 7 days ondansetron 2019-09 Yes 4mg 4 mg, Slow Univers (ZOFRAN 08 IV Push, ity of (PF)) 03:37: Q6HPRN, [place] injection 4 43 Starting Medi brandy mg [facility] Branch 07/10/20 at 2137, Until Discontinu ed, Routine, Nausea and Vomiting (N/V) melatonin 2019-09 Yes 6mg 6 mg, Univers (MELATIN) 1-08 Oral, QHS, ity of tablet 6 mg 03:00: First dose [place] 00 on [facility] 07/10/20 at Branch 2100, Until Discontinu ed, Routine pantoprazol 2019-09 Yes 40mg 40 mg, Univ ers e 08 Oral, ity of (PROTONIX) 03:00: DAILY, [place] EC tablet 00 First dose Medi brandy 40 mg (after Branch last modificati on) on [facility] 07/10/20 at 2100, Until Discontinu ed, Routine traMADoL 2019-09 Yes 50mg 50 mg, Univers (ULTRAM) 108 Oral, ity of tablet 50 02:48: Q6HPRN, [place] mg [address] [facility] Branch 07/10/20 at 2048, Until Discontinu ed, Routine, Pain (scale 4-6) ascorbic 2019-09 2020- No [id number] 500mg Take 1 Univers acid, 09-10 tablet by ity of vitamin C, 00:00: 05:59 mouth 2 [place]ammad as 500 mg 00 :00 (two) Medical tablet times Branch daily for 30 days. zinc 2019-09- No [id number] 220mg Take 1 Univ ers sulfate 220 09-10 capsule by i ty of (50) mg 00:00: 05:59 mouth 2 [place] capsule 00 :00 (two) Medical times Branch daily for 30 days. Cholecalcif 2019-09 2020- No [id number] 2000U Take 1 Univers cheko, 09-10 tablet by ity of Vitamin D3, 00:00: 05:59 [place] (VITAMIN 00 :00 daily for Medica l D3) 50 mcg 30 days. Branc h (2,000 unit) tablet ascorbic 2019-09- No [id number] 500mg Take 1 Univers acid, 09-10 tablet by ity of vitamin C, 00:00: 05:59 mouth 2 [place]ammad as 500 mg 00 :00 (two) Medical tablet times Branch daily for 30 days. zinc 2019-09- No [id number] 220mg Take 1 Univ ers sulfate 220 09-10 capsule by i ty of (50) mg 00:00: 05:59 mouth 2 [place] capsule 00 :00 (two) Medical times Branch daily for 30 days. Cholecalcif 2019-09- No [id number] 2000U Take 1 Univers cheko, 09-10 tablet by ity of Vitamin D3, 00:00: 05:59 [place] (VITAMIN 00 :00 daily for Medica l D3) 50 mcg 30 days. Branc h (2,000 unit) tablet doxycycline 2019-09- No [id number] 100mg Take 1 Univers hyclate 100 09-10 [id number] capsule by ity of mg capsule 00:00: 05:59 mouth [place] 00 :00 every 12 Medical (twelve) Branch hours for 10 days. L.acidophil 2019-09- No [id number] 1{capsu Take 1 Univers us,helvet-B 09-10 [id number] le} capsule by ity of .bifidum 00:00: 05:59 mouth 2 [place] (ACIDOPHILU 00 :00 (two) Medical S PROBIOTIC times Branch COMPLEX) daily for 250 million 10 days. cell Cap doxycycline 2019-09- No [id number] 100mg Take 1 Univers hyclate 100 09-10 [id number] capsule by ity of mg capsule 00:00: 05:59 mouth [place] 00 :00 every 12 Medical (twelve) Branch hours for 10 days. L.acidophil 2019-09- No [id number] 1{capsu Take 1 Univers us,helvet-B 09-10 [id number] le} capsule by ity of .bifidum 00:00: 05:59 mouth 2 [place] (ACIDOPHILU 00 :00 (two) Medical S PROBIOTIC times Branch COMPLEX) daily for 250 million 10 days. cell Cap alum-mag 2019-09 Yes 30mL 30 mL, Univers hydroxide-s 09-09 Oral, ity of imeth 16:34: Q6HPRN, [place] (MAALOX 59 Starting Medical PLUS / Sat Branch MAG-AL 07/10/20 at PLUS) 1034, 200-200-20 Until mg/5 mL Discontinu suspension ed, 30 mL Routine, Indigestio n piperacilli 2019-09 Yes 3.375g 3.375 g, Univers n-tazobacta 09-09 IV ity of m (ZOSYN) 16:00: [place]gyback, [place] 3.375 g in 00 Q6H ABX, Medic al NaCl 0.9% First dose Bran ch (NS) 100 mL (after MINI-BAG last modificati on) on [facility] 07/10/20 at 1000, Until Discontinu ed, 100 mL
Reas on for Anti-Infec tive: Documented Infection< br>Documen ivis Infection Site: Skin / Soft Tissue
Duration of Therapy: 7 days lisinopriL 2019-09 Yes 10mg 10 mg, Unive rs (PRINIVIL,Z 09-09 Oral, ity of ESTRIL) 15:00: DAILY, [place] tablet 10 00 First dose Medi brandy mg on [facility] Branch 07/10/20 at 0900, Until Discontinu ed, Routine enoxaparin 2019-09 Yes 40mg 40 mg, Unive rs (LOVENOX) 09-09 Subcutaneo ity of injection 15:00: us, DAILY, [place] 40 mg 00 First dose Medical on [facility] Branch 07/10/20 at 0900, Until Discontinu ed, Routine vancomycin 2019-09 2020- No 15mg/kg 1,500 mg Univers 1500 mg in 09-09 (rounded ity of NS 500 mL 15:00: 16:26 from [place] IV 00 :09 2,986.5 mg Medical Piggyback = 15 mg/kg Bran ch RTU 1,500 ?199.1 mg kg), IV Piggyback, Q12H ABX, 14 doses, First dose (after last modificati on) on [facility] 07/10/20 at 0900, Last dose on Sun07/16/20 at 2100
Re ason for Anti-Infec tive: Documented Infection< br>Documen ivis Infection Site: Skin / Soft Tissue
Duration of Therapy: 7 days ascorbic 2019-09 Yes 500mg 500 mg, Unive rs acid 1-07 Oral, BID, ity of (vitamin C) 14:00: First dose [place] (VITAMIN C) [address] [facility] Medica l tablet 500 07/10/20 at [facility] mg 0800, Until Discontinu ed, Routine zinc 2019-09 Yes 220mg 220 mg, Univers sulfate 07 Oral, BID, ity of (ORAZINC) 14:00: [place] capsule [address] [facility] Medica l mg 07/10/20 at Branch 0800, Until Discontinu ed, Routine piperacilli 2019-09 2020- No 3.375g 3.375 g, Univers n-tazobacta 09-09 IV ity of m (ZOSYN) 09:00: 14:36 Piggyback, [place] 3.375 g in 00 :14 Q6H ABX, Medic al NaCl 0.9% First dose Bran ch (NS) 100 mL on Sat MINI-BAG 07/10/20 at 0300, Until Discontinu ed, 100 mL
R elif for Anti-Infec tive: Documented Infection< br>Documen ivis Infection Site: Skin / Soft Tissue
Duration of Therapy: 7 days nicotine 2019-09 Yes 1{patch 1 Patch, Un jessica (NICODERM) 09-09 } Topical, ity o f 21 mg/24 hr 06:15: Administer [place] patch 1 00 over 24 Medical Patch Hours, Branch Q24H, First dose on 07/10/20 at 0015, Until Discontinu ed, Routine diphenhydrA 2019-09 Yes 25mg 25 mg, Univ ers MINE 107 Oral, ity of (BENADRYL) 05:00: Q4HPRN, [place] tablet 25 03 Starting Medica l mg Fri Branch 07/09/20 at 2300, Until Discontinu ed, Routine, Itching NaCl 0.9% 2019-09 Yes 1000mL at 125 Univ ers (NS) IV 1-07 mL/hr, IV ity of infusion 03:30: Infusion, [place] 1,000 mL 00 CONTINUOUS Medic al , Starting Branch 07/09/20 at 2130, Until Discontinu ed, Routine piperacilli 2019-09- No 3.375g 3.375 g, Univers n-tazobacta 09-09 IV ity of m (ZOSYN) 03:15: 04:32 Piggyback, [place] 3.375 g in 00 :00 ONCE, 1 Medica l NaCl 0.9% dose, [facility] Branc h (NS) 100 mL 07/09/20 at MINI-BAG 2114, 100 mL
Reas on for Anti-Infec tive: Documented Infection< br>Documen ivis Infection Site: Skin / Soft Tissue
Duration of Therapy: Other (see Comments) Sliding 2019-09 Yes Subcutaneo Univ ers Scale 09-09 us, AC+HS, ity of Insulin-Reg 03:00: First dose [place] ular + Fsbg 00 on Sun Medica l Testing 07/09/20 at Branch 2100, Until Discontinu ed, Routine LORazepam 2019-09- No 1mg 1 mg, Slow U nivers (ATIVAN) 09-09 IV Push, ity of injection 1 03:00: 01:57 ONCE, 1 [place] mg 00 :00 dose, [facility] Medical 07/09/20 at Branch 2100, STAT vancomycin 2019-09 2020- No 15mg/kg 1,500 mg Univers 1500 mg in 09-09 (rounded ity of NS 500 mL 02:44: 14:26 from [place] IV 00 :12 2,986.5 mg Medical Piggyback = 15 mg/kg Bran RTU 1,500 ?199.1 mg kg), IV Piggyback, Q12H ABX, First dose on 07/09/20 at 2044, Until Discontinu ed
Reas on for Anti-Infec tive: Documented Infection< br>Documen ivis Infection Site: Skin / Soft Tissue
Duration of Therapy: 7 days acetaminoph 2019-09 Yes 650mg 650 mg, Un jessica en 09-09 Oral, ity of (TYLENOL) 02:40: Q6HPRN, [place] tablet 650 16 Starting Medic al mg Fri [place] 07/09/20 at 2040, Until Discontinu ed, Routine, Pain (scale 1-3) ondansetron 2019-09- No 4mg 4 mg, Slow Univers (ZOFRAN 09-09 IV Push, ity of (PF)) 01:45: 01:07 ONCE, 1 [place] injection 4 00 :00 dose, Fri Med ical mg 07/09/20 at [place] 194, RAGHAVENDRA morpHINE 2019-09- No 4mg 4 mg, Slow Un jessica injection 4 09-09 IV Push, ity of mg 01:45: 01:07 ONCE, 1 [place] 00 :00 dose, Fri Medical 07/09/20 at [place] 194, STAT acetaminoph 2019-09- No 975mg 975 mg, U nivers en 09-09 Oral, ity of (TYLENOL) 01:45: 01:08 ONCE, 1 [place] tablet 975 00 :00 dose, Fri Medi brandy mg 07/09/20 at [place] 194, Routine iohexol 2019-09- No 120mL 120 mL, Unive rs (OMNIPAQUE 09-09 Intravenou it y of 350 01:30: 01:22 s, ONCE, 1 [place] BULK-100 00 :00 dose, Fri Medica l mL) 07/09/20 at [place] injection 1930, 120 mL Routine NaCl 0.9% 2019-09- No 1000mL at 999 Uni vers (NS) bolus 09-09 mL/hr, ity of infusion 01:15: 01:07 1,000 mL, Hammad as 1,000 mL 00 :00 IV Medical Infusion, [place] ONCE, 1 dose, 07/09/20 at 1915, STAT IRON, CARB 2019-09 2020- No 1{tbl} Take 1 Tab Univers & 09-0806 by mouth ity of GLUC/FA/B12 23:55: 00:00 daily. [place] as /C/DSS 38 :00 Medical ([facility] DUAL-IRON DELIVERY ORAL) topiramate Yes 50 mg = 2 Me moria 25 MG Oral 8-01 tab, PO, l Tablet 17:05: Bedtime, # Annmarie nn [Topamax] 00 60 tab, 2 Refill(s), Pharmacy: [id number] topiramate Yes 50 mg = 2 Me moria 25 MG Oral 8-01 tab, PO, l Tablet 17:05: Bedtime, # [place] nn [Topamax] 00 60 tab, 2 Refill(s), [id number] topiramate Yes 50 mg = 2 Me moria 25 MG Oral 8-01 tab, PO, l Tablet 17:05: Bedtime, # Annmarie nn [Topamax] 00 60 tab, 2 Refill(s), [id number] amitriptyli Yes 10 mg = 1 M emoria ne 10 mg 8-01 tab, PO, l oral tablet 16:39: Bedtime, 0 [place] 00 Refill(s) SUMAtriptan Yes 100 mg = 2 Memoria 50 mg oral 8-01 tab, PO, l tablet 16:39: ONCE, 0 [place] 00 Refill(s) propranolol No See Memori a 60 mg oral 801 Instructio l tablet 16:39: ns, 1 tab Chi n 00 PO BID, 0 Refill(s) pantoprazol Yes 40 mg = 1 M emoria e 40 mg 8-01 tab, PO, l oral 16:39: Daily, 0 [place] enteric 00 Refill(s) coated tablet amitriptyli Yes 10 mg = 1 M emoria ne 10 mg 8-01 tab, PO, l oral tablet 16:39: Bedtime, 0 [place] 00 Refill(s) SUMAtriptan Yes 100 mg = 2 Memoria 50 mg oral 8-01 tab, PO, l tablet 16:39: ONCE, 0 [place] 00 Refill(s) propranolol No See Memori a 60 mg oral 8-01 Instructio l tablet 16:39: ns, 1 tab Chi n 00 PO BID, 0 Refill(s) pantoprazol Yes 40 mg = 1 M emoria e 40 mg 8-01 tab, PO, l oral 16:39: Daily, 0 [place] enteric 00 Refill(s) coated tablet amitriptyli Yes 10 mg = 1 M emoria ne 10 mg 8-01 tab, PO, l oral tablet 16:39: Bedtime, 0 [place] 00 Refill(s) SUMAtriptan Yes 100 mg = 2 Memoria 50 mg oral 04-03 tab, PO, l tablet 16:39: ONCE, 0 [place] 00 Refill(s) propranolol No See Memori a 60 mg oral 04-03 Instructio l tablet 16:39: ns, 1 tab Chi n 00 PO BID, 0 Refill(s) pantoprazol Yes 40 mg = 1 M emoria e 40 mg 04-03 tab, PO, l oral 16:39: Daily, 0 [place] enteric 00 Refill(s) coated tablet metformin metformin No 1 BID metformin [facility] ER 500 mg ER 500 mg ER 500 mg Family tablet,exte tablet,exte tablet,ext Practic nded nded ended e release 24 release 24 release 24 hr Take 1 hr Take 1 hr Take 1 tablet tablet tablet twice a day twice a day twice a by oral by oral day by route with route with oral route meals for meals for with meals 30 days. 30 days. for 30 days. bupropion bupropion No bupropion [facility] HCl SR 100 HCl SR 100 HCl SR 100 Medical mg mg mg tablet,12 tablet,12 tablet,12 hr hr hr sustained-r sustained-r sustained- elease TAKE elease TAKE release 1 TABLET BY 1 TABLET BY TAKE 1 MOUTH TWICE MOUTH TWICE TABLET BY A DAY A DAY MOUTH TWICE A DAY Nexium 24HR Nexium 24HR No 40mg Q1D Nexium [facility] 22.3 mg 22.3 mg 24HR 22.3 Fami ly capsule,del capsule,del mg P ractic ayed ayed capsule,de e release 40 release 40 layed mg every mg every release 40 day by oral day by oral mg every route. route. day by oral route. esomeprazol esomeprazol No esomeprazo [facility] e magnesium e magnesium le M edical 40 mg 40 mg magnesium capsule,del capsule,del 40 mg ayed ayed capsule,de release release layed TAKE 1 TAKE 1 release CAPSULE BY CAPSULE BY TAKE 1 MOUTH EVERY MOUTH EVERY CAPSULE BY DAY DAY MOUTH EVERY DAY OneTouch OneTouch No 2strip( Q1D OneTouch [facility] Verio test Verio test s) Verio test Family strips Take strips Take strips Practic 2 strips 2 strips Take 2 e every day every day strips by miscell. by miscell. every day route for route for by 90 days. 90 days. miscell. route for 90 days. fluoxetine fluoxetine No fluoxetine [facility] 20 mg 20 mg 20 mg Medical tablet TAKE tablet TAKE tablet 2 TABLETS 2 TABLETS TAKE 2 BY MOUTH BY MOUTH TABLETS BY ONCE DAY ONCE DAY MOUTH ONCE DAY Trulicity Trulicity No 1.5mg Q1W Trulicity [place] 1.5 mg/0.5 1.5 mg/0.5 1.5 mg/0.5 Family mL mL mL Practic subcutaneou subcutaneou subcutaneo e s pen s pen us pen injector injector injector Inject 1.5 Inject 1.5 Inject 1.5 mg every mg every mg every week by week by week by subcutaneou subcutaneou subcutaneo s route for s route for us route 30 days. 30 days. for 30 days. ibuprofen ibuprofen No ibuprofen [facility] 600 mg 600 mg 600 mg Medical tablet TAKE tablet TAKE tablet 1 TABLET BY 1 TABLET BY TAKE 1 MOUTH EVERY MOUTH EVERY TABLET BY 6 (SIX) 6 (SIX) MOUTH HOURS HOURS EVERY 6 NEEDED FOR NEEDED FOR (SIX) PAIN (SCALE PAIN (SCALE HOURS 1-3) OR 1-3) OR NEEDED FOR PAIN (SCALE PAIN (SCALE PAIN 4-6). 4-6). (SCALE 1-3) OR PAIN (SCALE 4-6). metformin metformin No metformin [facility] ER 500 mg ER 500 mg ER 500 mg Medical tablet,exte tablet,exte tablet,ext nded nded ended release 24 release 24 release 24 hr TAKE 1 hr TAKE 1 hr TAKE 1 TABLET BY TABLET BY TABLET BY MOUTH TWICE MOUTH TWICE MOUTH A DAY WITH A DAY WITH TWICE A MEALS FOR MEALS FOR DAY WITH 30 DAYS 30 DAYS MEALS FOR 30 DAYS omeprazole omeprazole No omeprazole [facility] 20 mg 20 mg 20 mg Medical capsule,del capsule,del capsule,de ayed ayed layed release release release TAKE 1 TAKE 1 TAKE 1 CAPSULE BY CAPSULE BY CAPSULE BY MOUTH EVERY MOUTH EVERY MOUTH DAY DAY EVERY DAY penicillin penicillin No penicillin [facility] V potassium V potassium V M edical 500 mg 500 mg potassium tablet TAKE tablet TAKE 500 mg 1 TABLET BY 1 TABLET BY tablet MOUTH 4 MOUTH 4 TAKE 1 TIMES A DAY TIMES A DAY TABLET BY MOUTH 4 TIMES A DAY Suprep Suprep No Suprep [facility] Bowel Prep Bowel Prep Bowel Prep Medical Kit 17.5 Kit 17.5 Kit 17.5 gram-3.13 gram-3.13 gram-3.13 gram-1.6 gram-1.6 gram-1.6 gram oral gram oral gram oral solution solution solution TAKE TAKE TAKE DIRECTED BY DIRECTED BY DIRECTED PHYSICIAN PHYSICIAN BY PHYSICIAN topiramate topiramate No topiramate [facility] 25 mg 25 mg 25 mg Medical tablet TAKE tablet TAKE tablet 2 TABLETS 2 TABLETS TAKE 2 BY MOUTH AT BY MOUTH AT TABLETS BY BEDTIME BEDTIME MOUTH AT BEDTIME Immunizations Ordered Filled Immunization Date Status Comments [facility] e Immunization Name Name COVID-19, mRNA, COVID-19, mRNA, 2021-01-15 Completed [facility] LNP-S, PF, 100 LNP-S, PF, 100 00:00:00 Practi ce mcg/0.5 mL dose mcg/0.5 mL dose (Moderna) (Moderna) SARS-COV-2 COVID-19 2021-01-04 Completed Unive rsity of MODERNA VACCINE 00:00:00 [facility] [place] [facility] SARS-COV-2 COVID-19 2021-01-04 Completed Unive rsity of MODERNA VACCINE 00:00:00 [facility] [place] [facility] SARS-COV-2 COVID-19 2021-01-04 Completed Unive rsity of MODERNA VACCINE 00:00:00 [facility] [place] [facility] SARS-COV-2 COVID-19 2021-01-04 Completed Unive rsity of MODERNA 12+ YRS 00:00:00 [facility] VACCINE Branch SARS-COV-2 COVID-19 2021-01-04 Completed Unive rsity of MODERNA 12+ YRS 00:00:00 [facility] VACCINE Branch SARS-COV-2 COVID-19 2020-12-07 Completed Unive rsity of MODERNA VACCINE 00:00:00 [facility] [place] [facility] SARS-COV-2 COVID-19 2020-12-07 Completed Unive rsity of MODERNA VACCINE 00:00:00 [facility] [place] [facility] SARS-COV-2 COVID-19 2020-12-07 Completed Unive rsity of MODERNA VACCINE 00:00:00 [facility] [place] [facility] SARS-COV-2 COVID-19 2020-12-07 Completed Unive rsity of MODERNA VACCINE 00:00:00 [facility] ical Branch SARS-COV-2 COVID-19 2020-12-07 Completed Unive rsity of MODERNA VACCINE 00:00:00 [facility] ical Branch SARS-COV-2 COVID-19 2020-12-07 Completed Unive rsity of MODERNA VACCINE 00:00:00 [facility] ical Branch SARS-COV-2 COVID-19 2020-12-07 Completed Unive rsity of MODERNA VACCINE 00:00:00 [facility] ical Branch SARS-COV-2 COVID-19 2020-12-07 Completed Unive rsity of MODERNA 12+ YRS 00:00:00 [facility] ical VACCINE Branch SARS-COV-2 COVID-19 2020-12-07 Completed Unive rsity of MODERNA 12+ YRS 00:00:00 [facility] ical VACCINE Branch Vital Signs Vital Name Observation Time Observation Value Comments Source Systolic blood 2022-10-31 21:30:00 162 mm[Hg] Univer sity of pressure [facility] Diastolic blood 2022-10-31 21:30:00 74 mm[Hg] Unive rsity of pressure [facility] Heart rate 2022-10-31 21:30:00 79 /min [facility] Respiratory rate 2022-10-31 21:30:00 18 /min General acute hospital Oxygen saturation in 2022-10-31 21:30:00 100 /min [facility] Arterial blood by [facility] Pulse oximetry Branch Body temperature 2022-10-31 13:42:00 37.11 Jackie [facility] height 2022-10-31 13:42:00 180.3 cm [facility] Body weight 2022-10-31 13:42:00 204.119 kg [facility] BMI 2022-10-31 13:42:00 62.76 kg/m2 [facility] Height 2021-12-07 00:00:00 72 [in_i] Viri vidales BMI (Body Mass 2021-12-07 00:00:00 58.3 kg/m2 [facility] Medical Index) Body Weight 2021-12-07 00:00:00 6880 [oz_av] Viri vidales BP Diastolic 2021-10-21 00:00:00 91 mm[Hg] [facility] Height 2021-10-21 00:00:00 72 [in_i] [facility] BMI (Body Mass 2021-10-21 00:00:00 57.2 kg/m2 [facility] Family Index) Practice BP Systolic 2021-10-21 00:00:00 163 mm[Hg] [facility] Body Weight 2021-10-21 00:00:00 422 [lb_av] [facility] Systolic blood 2021-01-05 17:08:00 129 mm[Hg] Univer sity of pressure [place] [facility] Diastolic blood 2021-01-05 17:08:00 86 mm[Hg] Unive rsity of pressure [place] [facility] Heart rate 2021-01-05 17:08:00 79 /min Universi ty of [place] [facility] Respiratory rate 2021-01-05 17:08:00 14 /min Univ ersity of [place] [facility] Oxygen saturation in 2021-01-05 17:08:00 99 /min University of Arterial blood by [place] [employer] [facility] Pulse oximetry Branch Body temperature 2021-01-05 16:48:00 36.11 Jackie Univ ersity of [place] [facility] Body height 2020-12-30 16:37:00 180.3 cm [facility]i ty [facility] [place] [facility] Body weight 2020-12-30 16:37:00 204.6 kg [facility] [place] [facility] BMI 2020-12-30 16:37:00 62.94 kg/m2 [facility] [place] [facility] Systolic blood 2021-01-05 17:08:00 129 mm[Hg] Univer sity of pressure [place] [facility] Diastolic blood 2021-01-05 17:08:00 86 mm[Hg] Unive rsity of pressure [place] [facility] Heart rate 2021-01-05 17:08:00 79 /min [facility]i [facility] [place] [facility] Respiratory rate 2021-01-05 17:08:00 14 /min Univ ersity of [place] [facility] Oxygen saturation in 2021-01-05 17:08:00 99 /min University of Arterial blood by [place] [employer] [facility]y Pulse oximetry Branch Body temperature 2021-01-05 16:48:00 36.11 Jackie Univ ersity of [place] [facility] Body height 2020-12-30 16:37:00 180.3 cm [facility] [place] [facility] Body weight 2020-12-30 16:37:00 204.6 kg [facility] [place] [facility] BMI 2020-12-30 16:37:00 62.94 kg/m2 [facility] [place] [facility] Systolic blood 2020-09-15 19:57:00 130 mm[Hg] Univer sity of pressure [place] [facility] Diastolic blood 2020-09-15 19:57:00 92 mm[Hg] Unive rsity of pressure [place] [facility] Heart rate 2020-09-15 19:57:00 103 /min [facility] [place] [facility] Body temperature 2020-09-15 19:49:00 36.83 Jackie Univ ersity of [place] [facility] Respiratory rate 2020-09-15 19:49:00 18 /min Univ ersity of [place] [facility] Body height 2020-09-15 19:49:00 180.3 cm [facility] [place] [facility] Body weight 2020-09-15 19:49:00 198.04 kg [facility] [place] [facility] BMI 2020-09-15 19:49:00 60.89 kg/m2 [facility] [place] [facility] Systolic blood 2020-09-15 19:57:00 130 mm[Hg] Univer sity of pressure [place] [facility] Diastolic blood 2020-09-15 19:57:00 92 mm[Hg] Unive rsity of pressure [place] [facility] Heart rate 2020-09-15 19:57:00 103 /min [facility] [place] [facility] Body temperature 2020-09-15 19:49:00 36.83 Jackie Univ ersity of [place] [facility] Respiratory rate 2020-09-15 19:49:00 18 /min Univ ersity of [place] [facility] Body height 2020-09-15 19:49:00 180.3 cm [facility] [place] [facility] Body weight 2020-09-15 19:49:00 198.04 kg [facility] [place] [facility] BMI 2020-09-15 19:49:00 60.89 kg/m2 [facility] [place] [facility] Systolic blood 2020-09-03 22:46:00 162 mm[Hg] Univer sity of pressure [place] [facility] Diastolic blood 2020-09-03 22:46:00 75 mm[Hg] Unive rsity of pressure [facility] Heart rate 2020-09-03 22:46:00 71 /min Universi ty of [facility] Respiratory rate 2020-09-03 22:46:00 16 /min Univ ers[facility] [facility] Oxygen saturation in 2020-09-03 22:46:00 100 /min University of Arterial blood by [facility] brandy Pulse oximetry Branch Body temperature 2020-09-03 21:40:00 36.72 Jackie Univ ersity of [facility] Body weight 2020-09-03 15:02:00 204.572 kg Universi ty of [facility] BMI 2020-09-03 15:02:00 62.90 kg/m2 Universi ty of [facility] Systolic blood 2020-07-11 18:44:00 127 mm[Hg] Univer sity of pressure [facility] Diastolic blood 2020-07-11 18:44:00 78 mm[Hg] Unive rsity of pressure [facility] Heart rate 2020-07-11 18:44:00 90 /min Universi ty of [facility] Body temperature 2020-07-11 18:44:00 36.83 Jackie Univ ersity of [facility] Oxygen saturation in 2020-07-11 18:44:00 100 /min University of Arterial blood by [facility] Pulse oximetry Branch Respiratory rate 2020-07-11 14:00:00 16 /min Univ ersity of [facility] Body weight 2020-07-10 11:02:00 204.98 kg Universi ty of [facility] BMI 2020-07-10 11:02:00 63.03 kg/m2 Universi ty [facility] Body height 2020-07-10 03:32:00 180.3 cm [facility] Systolic blood 2022-06-01 16:31:55 157 mm[Hg] Method ist [facility] pressure Diastolic blood 2022-06-01 16:31:55 89 mm[Hg] [facility] pressure Heart rate 2022-06-01 16:31:55 64 /min Methodis t [facility] Body temperature 2022-06-01 16:31:55 36.83 Jackie [facility] Res[facility] rate 2022-06-01 16:31:55 20 /min [facility] Oxygen saturation in 2022-06-01 16:31:55 100 /min [facility] Arterial blood by Pulse oximetry Body height 2022-06-01 14:24:00 180.3 cm [facility] Weight 2020-12-24 19:03:00 [facility] Systolic (mm Hg) 2020-12-24 19:03:00 Carlton rial [place] Diastolic (mm Hg) 2020-12-24 19:03:00 Mem orial [facility] Heart Rate 2020-12-24 19:03:00 [facility] Respitory Rate 2020-12-24 19:03:00 Memori al [place] Height 2019-04-03 16:35:00 180.34 cm [facility] [place] BMI Calculated 2019-04-03 16:35:00 Memori al [place] Weight 2019-04-03 16:35:00 [facility] [place] Heart Rate 2019-04-03 16:35:00 [facility] Respitory Rate 2019-04-03 16:35:00 Memori [facility] [place] Systolic (mm Hg) 2019-04-03 16:35:00 Carlton rial [place] Diastolic (mm Hg) 2019-04-03 16:35:00 Mem orial [place] Procedures Procedure Date / Time Performing Clinician Source Performed AUTHORIZATION FOR 2022-11-21 05:01:00 Doctor Unassigned, No Univ [facility] RELEASE OF PHI [facility] CT ABDOMEN PELVIS W 2022-10-31 15:57:19 Steve Arauz [facility] CONTRAST [facility] LIPASE 2022-10-31 15:24:00 Steve Arauz [facility] COMP. METABOLIC PANEL 2022-10-31 15:24:00 Steve Arauz [facility] ([id number]) [facility] CBC WITH DIFF 2022-10-31 15:24:00 Steve Arauz [facility] POCT TEST 2022-10-31 14:06:00 Steve Arauz [facility] URINALYSIS 2022-10-31 14:04:00 Setve Arauz [facility] CONSENT/REFUSAL FOR 2022-10-31 13:33:37 Doctor Unassigned, No [facility] DIAGNOSIS AND TREATMENT [facility] POC , URINE 2022-06-01 16:46:00 Mel Zuñiga [facility] CT HEAD WO CONTRAST 2022-06-01 15:57:58 Yogesh [facility] CBC WITH PLATELET AND 2022-06-01 14:51:00 [facility] DIFFERENTIAL BASIC METABOLIC PANEL 2022-06-01 14:51:00 [facility] ESTIMATED GFR 2022-06-01 14:51:00 Marcia [facility] ECG 12-LEAD 2022-06-01 14:33:57 Brizuela [facility] SURGICAL PATHOLOGY EXAM 2021-01-05 16:39:00 Sherrill Bah [facility] COLONOSCOPY (ENDO) 2021-01-05 16:24:20 Naima [facility] COLONOSCOPY (ENDO) 2021-01-05 16:24:20 Naima [facility] COLONOSCOPY 2021-01-05 16:11:00 Sherrill Bah [facility] COLONOSCOPY 2021-01-05 16:11:00 Sherrill Bah [facility] POCT TEST 2021-01-05 14:32:00 [facility](AGE 2021-01-05 14:32:00 Eligio [facility] >30DAYS) [facility] POCT TEST 2021-01-05 14:32:00 Austin Del Valle [facility] POCT GLUCOSE(AGE 2021-01-05 14:32:00 Eligio [facility] >30DAYS) [facility] POCT GLUCOSE (AUTOMATED) 2021-01-05 14:28:00 Sherrill Bah [facility] POCT GLUCOSE (AUTOMATED) 2021-01-05 14:28:00 Sherrill Bah [facility] DAY SURGERY - ADC 2021-01-05 05:01:00 Doctor Unassigned, No [facility] OF BENEFITS 2021-01-04 19:05:57 Doctor Unassigned, No [facility] DSU PRE-OP 2020-12-29 05:01:00 Doctor Unassigned, No [facility] DSU PRE-OP 2020-12-29 05:01:00 Doctor Unassigned, No [facility] ASSIGNMENT OF BENEFITS 2020-12-28 15:39:55 Doctor Unassigned, No [facility] POCT GLUCOSE (AUTOMATED) 2020-09-03 19:19:00 Austin Tang [facility] HB ABO GROUPING 2020-09-03 18:44:00 Austin Tang [facility] COVID-19 (ID NOW RAPID 2020-09-03 18:35:00 Austin Tang [facility] TESTING) Medical Branch US OVARY TORSION 2020-09-03 17:04:04 Austin Tang [facility] POCT TEST 2020-09-03 15:15:00 Austin Tang [facility] LIPASE 2020-09-03 15:14:00 Austin Tang [facility] HEPATIC FUNCTION PANEL 2020-09-03 15:14:00 Austin Tang [facility] ([id number]) (ALB,T.PRO,BILI [facility] T,BU/BC,ALT,AST,ALK PHOS) BASIC METABOLIC PANEL 2020-09-03 15:14:00 Austin Tang [facility] (NA, K, CL, CO2, Medical Branch GLUCOSE, BUN, CREATININE, CA) CBC WITH DIFF 2020-09-03 15:14:00 Austin Tang [facility] URINALYSIS 2020-09-03 15:14:00 Austin Tang [facility] CONSENT/REFUSAL FOR 2020-09-03 14:57:17 Doctor Unassigned, No [facility] DIAGNOSIS AND TREATMENT [facility] POCT GLUCOSE (AUTOMATED) 2020-07-11 18:27:00 Pat Ford [facility] VANCOMYCIN TROUGH 2020-07-11 14:38:00 Pat Ford [facility] POCT GLUCOSE (AUTOMATED) 2020-07-11 14:24:00 Pat Ford [facility] BASIC METABOLIC PANEL 2020-07-11 10:55:00 Paulo [facility] (NA, K, CL, CO2, Medical Branch GLUCOSE, BUN, CREATININE, CA) CBC WITH DIFF 2020-07-11 10:55:00 Bates [facility] POCT GLUCOSE (AUTOMATED) 2020-07-10 22:55:00 [facility] POCT GLUCOSE (AUTOMATED) 2020-07-10 18:04:00 Pat Ford [facility] ASPIRATE OR ABSCESS 2020-07-10 16:41:00 Paulo [facility] CULTURE(AEROBIC/ANAEROBI [facility] C) C-REACTIVE PROTEIN 2020-07-10 15:54:00 Paulo [facility] D-DIMER 2020-07-10 15:54:00 Paulo [facility] POCT GLUCOSE (AUTOMATED) 2020-07-10 13:48:00 Pat Ford [facility] BASIC METABOLIC PANEL 2020-07-10 11:01:00 Pat Ford [facility] (NA, K, CL, CO2, Medical Branch GLUCOSE, BUN, CREATININE, CA) CBC WITH DIFF 2020-07-10 11:01:00 [facility] LACTIC ACID WHOLE BLOOD 2020-07-10 11:01:00 Pat Ford [facility] POCT GLUCOSE (AUTOMATED) 2020-07-10 03:49:00 Pat Ford [facility] XR CHEST 1 VW 2020-07-10 02:00:38 Caden Moscoso [facility] CT ABDOMEN PELVIS W 2020-07-10 01:28:13 Caden Moscoso [facility] CONTRAST [facility] POCT TEST 2020-07-10 01:13:00 Caden Moscoso [facility] COVID-19 (ID NOW RAPID 2020-07-10 00:35:00 Caden Moscoso [facility] TESTING) [facility] LACTIC ACID WHOLE BLOOD 2020-07-10 00:31:[address] [facility] BLOOD CULTURE SCREEN 2020-07-10 00:29:00 Caden Moscoso [facility] THYROID STIMULATING 2020-07-10 00:29:00 Pat Ford [facility] HORMONE [facility] BASIC METABOLIC PANEL 2020-07-10 00:29:00 Caden Moscoso [facility] (NA, K, CL, CO2, Medical Branch GLUCOSE, BUN, CREATININE, CA) CBC WITH DIFF 2020-07-10 00:29:00 Caden Moscoso Dawes o f [facility] GLYCOSYLATED HEMOGLOBIN 2020-07-10 00:29:[address] [facility] (A1C) [facility] NOTICE OF PRIVACY 2020-07-09 23:44:35 Doctor Unassigned, No [facility] PRACTICES Name Medical Branch Appendectomy [facility] Practice Leep [facility] Practice Other [facility] Practice Plan of Care Planned Activity Planned Date Details Comments Source Future Scheduled 2022-12-12 Pneumococcal Vaccine: [facility]ist Test 10:02:52 Pediatrics (0 to 5 Hospital Years) and At-Risk Patients (6 to 64 Years) (1 - PCV) [code = Pneumococcal Vaccine: Pediatrics (0 to 5 Years) and At-Risk Patients (6 to 64 Years) (1 - PCV)] Future Scheduled 2022-12-12 Hepatitis C screening [facility] Test 10:02:52 (procedure) [code = Hospital [id number]] Future Scheduled 2022-12-12 Screening for malignant Nondenominational Test 10:02:52 neoplasm of cervix Hospital (procedure) [code = 159083810] Future Scheduled 2022-12-12 COVID-19 VACCINE (4 - Me [facility]odist Test 10:02:52 Booster for Moderna Hospital series) [code = COVID-19 VACCINE (4 - Booster for Moderna series)] Future Scheduled 2022-12-12 BREAST CANCER SCREENING Nondenominational Test 10:02:52 [code = BREAST CANCER Hospit al SCREENING] Future Scheduled 2022-12-12 INFLUENZA VACCINE [code Nondenominational Test 10:02:52 = INFLUENZA VACCINE] Hospita l Diagnostic Test 2021-12-07 erythrocyte [facility] Pending 00:00:00 sedimentation rate by westergren method [code = erythrocyte sedimentation rate by westergren method] Diagnostic Test 2021-12-07 C-reactive protein, [facility] Pending 00:00:00 quantitative [code = C-reactive protein, quantitative] Diagnostic Test 2021-12-07 TSH, serum or plasma [facility] Pending 00:00:00 [code = TSH, serum or plasma] Diagnostic Test 2021-12-07 vitamin B12, serum [code [facility] Pending 00:00:00 = vitamin B12, serum] Diagnostic Test 2021-12-07 protein electrophoresis [facility] Pending 00:00:00 panel, serum or plasma [code = protein electrophoresis panel, serum or plasma] Diagnostic Test 2021-10-21 glucose, fingerstick, Glenn [facility] Pending 00:00:00 blood [code = glucose, Pract ice fingerstick, blood] Diagnostic Test 2021-10-21 hemoglobin A1C, [facility] amily Pending 00:00:00 fingerstick [code = Practice hemoglobin A1C, fingerstick] Diagnostic Test 2021-10-21 C-peptide, serum [code = [facility] Pending 00:00:00 C-peptide, serum] Practice Diagnostic Test 2021-10-21 diabetes panel, serum Glenn arora [facility] Pending 00:00:00 [code = diabetes panel, Prac lyla serum] Encounters Start End Encounter Admission Attending Care Care Encounter Source Date/Time Date/Time Type Type Clinicians Facility Department ID 2021-07-03 Outpatient [facility] [id number] Univers 15:45:37 [facility] 2023-02-08 2023-02-08 Outpatient Davidson SALAZAR [facility] [id number] Univers 14:00:00 14:00:00 KALA bull [facility] 2022-12-14 2022-12-14 Outpatient RYLEE, [facility] JEROME [id number] [facility] 07:05:00 12:30:00 IVORY 2022-11-21 2022-11-21 Orders Doctor SONALI [id number] Univers 00:00:00 00:00:00 Only Unassigned, NICOLLE [id number] ity of [place] [facility] 4.2.7.2.686 Hammad as [id number] [address] 2022-10-31 2022-10-31 Emergency X VASUT, [facility] ERT [id number] Univers 07:43:00 15:45:00 STEVE bull of [facility] 2022-10-31 2022-10-31 Emergency Vasut, [facility] [id number] Univers 07:43:00 15:45:00 Steve RODRIGUES 350.1.13.10 i [facility] 4.2.7.2.686 [facility] [id number] [facility] 084 Branch 2022-10-04 2022-10-04 Outpatient JEAN PIERRE Mcnamara, [facility] KIEL [id number] [facility] 07:08:00 07:08:00 Jeannine 59 [facility] 2022-09-20 2022-09-20 Outpatient JEAN PIERER Mcnamara, [facility] KIEL [id number] [facility] 08:34:00 08:34:00 Jeannine 11 [facility] 2022-06-01 2022-06-01 Emergency Brizuela, 1.2.840.1 [id number] Methodi 09:26:00 11:55:00 Antionette-Rose 57952.1.[address] [place] [facility] 3.430.2.7 Hospit a .3.608355 l .8 2022-06-01 2022-06-01 Emergency MARCIA, [facility] [id number] [place] 00:00:00 00:00:00 ANTIONETTE-ROSE [address] 2022-06-01 2022-06-01 Travel 1.2.840.1 [id number] [id number] Methodi 00:00:00 00:00:00 33891.1.1 350.1.13.43 092 3.430.2.7 0.2.7.3.698 spita .3.586371 084.8 l .8 2022-01-06 2022-01-06 Outpatient [facility] [id number] [place] 00:00:00 00:00:00 ABBE [address] 2021-12-26 2021-12-26 Outpatient [facility] [id number] [place] 00:00:00 00:00:[address] 2021-12-20 2021-12-20 Outpatient GC_TNC_Cher PRIV PRIV [id number] [facility] 11:28:00 11:28:00 ches_I [id number] Medica l 2021-12-08 2021-12-08 Outpatient GC_TNC_Cher PRIV PRIV [id number] [facility] 10:14:00 10:14:00 ches_I [id number] Medica l 2021-12-07 2021-12-07 Outpatient GC_TNC_Cher PRIV PRIV [id number] [facility] 04:56:00 04:56:00 ches_I [id number] Medica l 2021-12-07 2021-12-07 Outpatient Cherches, PRIV PRIV [id number] fa4-b 00:00:00 00:00:00 Abbe M [id number] 2021-12-07 2021-12-07 Abbe M PRIV [facility] 06 [facility] 00:00:00 00:00:00 [facility] MD: [id number] GC_TNC_S[address] [facility], Office* [address], [place] [address] , Ph. 2021-12-01 2021-12-01 Outpatient GC_TNC_Cher PRIV PRIV [id number] [facility] 12:44:00 12:44:00 ches_I [id number] Medica l 2021-11-12 2021-11-12 Outpatient Daniel_T VFP VFP [id number] 3-20 [facility] 07:10:00 07:10:00 [id number] Family Practic e 2021-10-25 2021-10-25 Outpatient Daniel_T VFP VFP [id number] 3-20 [facility] 10:29:00 10:29:00 [id number] Family Practic e 2021-10-21 2021-10-21 Harsha Reganel_T VFP [place] - [id number] [facility] 00:00:00 00:00:00 [facility] [id number] Lev Seaman - Pracalbino munoz MD: [id number] ALANNA_WILLIAM_Ben e Shadow ow [address], [address], [place] [address] , Ph. 2021-10-03 2021-10-03 Outpatient VFP VFP 20 [facility] 11:41:00 11:41:00 [id number] Family Practic e 2021-10-03 2021-10-03 Outpatient GC_TNC_Cher PRIV PRIV [id number] [facility] 04:46:00 04:46:00 ches_I [id number] Medica l 2021-09-30 2021-09-30 Outpatient VFP VFP [id number] [facility] 05:36:00 05:36:00 [id number] Family Practic e 2021-01-27 2021-01-29 Outside nullFlavo VAA [id number] Memoria 15:18:22 04:59:59 Medical r [facility]rology 03 l [facility] 2021-01-05 2021-01-05 [facility] 1.2.840.114 [id number] Univers 09:00:00 12:24:00 Encounter eSherrill 350.1.13.10 [place] [id number] [facility] 071 Branch 2021-01-05 2021-01-05 Surgery [facility] 1.2.840.114 [id number] Univers 11:45:00 12:22:00 eSherrill 350.1.13.10 [place] [id number] [facility] 020 Branch 2021-01-03 2021-01-05 Outside nullFlavo [facility] [id number] Memoria 20:37:15 04:59:59 Medical r Neurology 02 l Records Maame Craigann 2021-01-05 2021-01-05 Orders Doctor LYON 1.2.840.114 [id number] Univers 00:00:00 00:00:00 Only Unassigned, NICOLLE 350.1.13.10 ity of [place] [facility] 4.2.7.2.686 Hammad as [id number] [address] 2021-01-04 2021-01-04 Outpatient R NEIL, [facility] [id number] Univers 16:10:00 16:10:00 KAUR ity of [facility] 2021-01-04 2021-01-04 Laboratory Only, Adc Test [facility] 1.2.840. 114 [id number] Univers 14:10:20 14:25:20 Only Sherrill Bah 350.1.1 3.10 [place] [id number] [address] 2021-01-04 2021-01-04 Orders Doctor SONALI 1.2.840.114 [id number] Univers 00:00:00 00:00:00 Only Unassigned, NICOLLE 350.1.13.10 ity of [place] [facility] 4.2.7.2.686 Hammad as [id number] [address] 2020-12-28 2020-12-28 Outpatient R ANNIE [facility] [id number] Univers 11:15:00 11:15:00 SHERRILL Akhtar o f [facility] 2020-12-28 2020-12-28 Dressing Room Attendant Andrea, Adc Lab Main [facility] 1.2.8 40.114 [id number] Univers 10:40:49 10:55:49 Visit Sherrill Bah 350.1.1 3.10 it[place]2.[place] [facility] [phone] [address] 2020-12-28 2020-12-28 Orders Doctor SONALI 1.2.840.114 [id number] Univers 00:00:00 00:00:00 Only Unassigned, NICOLLE 350.1.13.10 ity of [place] [facility] 4.2.7.2.686 Hammad as [id number] [address] 2020-12-24 2020-12-25 Outpatient nullFlavo MNA [id number] Memoria 19:00:00 04:59:59 r Neurology 02 l [facility] 2020-12-12 2020-12-12 Outpatient [facility] [id number] Univers 12:30:00 12:30:00 tanmay [facility] 2020-12-07 2020-12-07 Outpatient FABRICIOUC [facility] [id number] Univers 17:30:00 17:30:00 BALWINDER tanmay [facility] 2020-11-22 2020-11-22 [facility] 1.2.840.114 [id number] Univers 00:00:00 00:00:00 Outreach Balwinder [facility] 350.1.13.10 i ty of [place].2.[place] [id number] [place] [address] 2020-10-12 2020-10-12 Outpatient R [facility] [id number] Univers 10:30:00 10:30:00 MAGUI tanmay [facility] 2020-09-15 2020-09-15 Office Sabina Tyson [facility] 1.2.840.114 [id number] Univers 13:30:24 14:54:33 Visit Magui Lockhart 350.1.13.10 [place] Profess[place] [phone] Ga dical nal 134 [facility] 2020-09-15 2020-09-15 Office Tyson Sabina [facility] 1.2.711.576 [id number] 13:30:24 14:54:33 Visit Jose Rodrigues 350.1.13.10 [place] 4.2.7.2.686 Professio [id number] [address] 2020-09-15 2020-09-15 Outpatient R [facility] [id number] Univers 13:15:00 13:15:[address] [facility] 2020-09-06 2020-09-06 Transition Monique Olivas 1.2.840.114 [id number] Univers 00:00:00 00:00:00 of Care Rubi Antony 350.1.13.10 i ty [place]2.[place] [id number] [address] 2020-09-03 2020-09-03 [facility] Austin Tang [facility] 1.2.840.114 [id number] Univers 08:59:00 17:22:00 Encounter Sabina Tyson Janneth 350.1.13.10 it[place] [id number] [facility] 071 Branch 2020-09-03 2020-09-03 Emergency X [facility] ERT [id number] Univers 08:59:00 08:59:00 ity of [facility] 2020-09-03 2020-09-03 Orders Doctor SONALI 1.2.840.114 [id number] Univers 00:00:00 00:00:00 Only Unassigned, NICOLLE 350.1.13.10 ity of [place] [facility] 4.2.7.2.686 Hammad as [phone] [facility] 009 Branch 2020-07-13 2020-07-13 Transition Monique Olivas 1.2.840.114 [id number] Univers 00:00:00 00:00:00 of Care Rubi Antony 350.1.13.10 i ty [place].2.[place] [id number] [facility] 403 Branch 2020-07-09 2020-07-11 Hospital Caden Moscoso [facility] 1.2.840.11 [id number] Univers 17:59:00 14:18:00 Encounter Pat Ford Janneth 350.1.13.10 ity of [place] [phone] [facility] 080 Branch 2020-07-09 2020-07-09 Emergency [facility] [id number] Univers 17:47:00 17:47:00 CADEN ity of [facility] 2019 2019-04-30 Outside nullFlavo MNA [id number] Memoria 14:13:47 04:59:59 Medical r Neurology 01 l Records Blanchard Frederic 2019-04-09 2019-04-11 Outside nullFlavo MNA [id number] Memoria 13:51:10 04:59:59 Medical r Neurology 00 l Records Maame De La Garza 2019-04-03 2019-04-04 Outpatient nullFlavo MNA [id number] [facility] [place] 16:30:00 04:59:59 r Neurology 01 l [facility] [place] Results Test Description Test Time Test Comments Results Result Comments Source COMP. METABOLIC PANEL (20377) 2022-10-31 15:48:42 Test Item Value Reference Range Interpretation Comme nts NA (test code = 0606671944) 135 mmol/L 135-145 K (test code = 5291391083) 4.1 mmol/L 3.5-5.0 CL (test code = 9557705157) 102 mmol/L 98-108 CO2 TOTAL (test code = 0966708168) 26 mmol/L 23-31 AGAP (test code = 5577629492) 7 2-16 BUN (test code = 1004658146) 7 mg/dL 7-23 GLUCOSE (test code = 9194608183) 178 mg/dL 70-110 H CREATININE (test code = 0.56 mg/dL 0.50-1.04 6432975601) TOTAL BILI (test code = 0.6 mg/dL 0.1-1.0 0896470730) CALCIUM (test code = 6610095174) 8.4 mg/dL 8.6-10.6 L T PROTEIN (test code = 3975208692) 7.4 g/dL 6.3-8.2 ALBUMIN (test code = 8172099800) 3.8 g/dL 3.5-5.0 ALK PHOS (test code = 4867879003) 93 U/L 34-122 ALTv (test code = 1742-6) 15 U/L 5-35 AST(SGOT) (test code = 1623183183) 18 U/L 13-40 eGFR (test code = 2716913820) 119.9 mL/min/1.73m2 LISA (test code = LISA) Association of Glomerular Filtration Rate (GFR) and Staging of Kidney Disease* + +-------- + ------+| GFR (mL/min/1.73 m2) ?| With Kidney Damage ?| ?Without Kidney Damage+ +-- + +| ?>90 ?| ?Stage one ?| ? Normal ?+ +------- + -------+| ?60-89 ?| ?Stage two ?| ? Decreased GFR ? + +-------- + ------+| ?30-59 ?| ?Stage three ?| ? Stage three ? + +-------- + ------+| ?15-29 ?| ?Stage four ? | ? Stage four ?+ +------- + -------+| ?<15 (or dialysis) ? ?| ?Stage five ? | ? Stage five ?+ +------- + -------+ *Each stage assumes the associated GFR level has been in effect for at least three months. ?Stages 1 to 5, with or without kidney disease, indicate chronic kidney disease. Notes: Determination of stages one and two (with eGFR >59mL/min/1.73 m2) requires estimation of kidney damage for at least three months as defined by structural or functional abnormalities of the kidney, manifested by either:Pathological abnormalities or Markers of kidney damage (including abnormalities in the composition of the blood or urine or abnormalities in imaging tests). Lab Interpretation (test code = Abnormal 91870-9) [facility] Test Item Value Reference Range Interpretation Comments LIPASE (test code = 2221553481) 67 U/L 0-220 Lab Interpretation (test code = Normal 30633-9) [facility] WITH [id number] 15:35:21 Test Item Value Reference Range Interpretation Comments WBC (test code = 12.36 See_Comment H [Automated 9490-2) message] The sy stem which generated this result transmitted reference range : 4.30 - 11.10 10*3/?L. The reference range was not used to interpret this result as normal/abnormal . RBC (test code = 4.25 See_Comment [Automated 539-8) message] The sy stem which generated this result transmitted reference range : 3.93 - 5.25 10*6/?L. The reference range was not used to interpret this result as normal/abnormal . HGB (test code = 8.7 g/dL 11.6-15.0 L 718-7) HCT (test code = 29.8 % 35.7-45.2 L 4544-3) MCV (test code = 70.1 fL 80.6-95.5 L 787-2) MCH (test code = 20.5 pg 25.9-32.8 L 785-6) MCHC (test code = 29.2 g/dL 31.6-35.1 L 786-4) RDW-SD (test code = 45.6 fL 39.0-49.9 69049-7) RDW-CV (test code = 18.5 % 12.0-15.5 H 788-0) PLT (test code = 272 See_Comment [Automated 777-3) message] The sy stem which generated this result transmitted reference range : 166 - 358 10*3/ ?L. The reference r leonarda was not used to interpret this result as normal/abnormal . MPV (test code = 9.4 fL 9.5-12.9 L 44862-0) NRBC/100 WBC (test 0.0 See_Comment [Automat ed code = 8386147276) message] The system which generated this result transmitted reference range : 0.0 - 10.0 /100 WBCs. The refer ence range was not u sed to interpret th is result as normal/abnormal . NRBC x10^3 (test code See_Comment [Auto mated = 9728135602) message] The s ystem which generated this result transmitted reference range : 10*3/?L. The reference range was not used to interpret this result as normal/abnormal . GRAN MAT (NEUT) % 74.7 % (test code = 770-8) IMM GRAN % (test code 0.30 % = 9272070043) LYMPH % (test code = 18.0 % 736-9) MONO % (test code = 5.9 % 5905-5) EOS % (test code = 0.9 % 713-8) BASO % (test code = 0.2 % 706-2) GRAN MAT x10^3(ANC) 9.23 10*3/uL 1.88-7.09 H (test code = 4550921188) IMM GRAN x10^3 (test 0.04 10*3/uL 0.00-0.06 code = 6092838084) LYMPH x10^3 (test code 2.22 10*3/uL 1.32-3.29 = 731-0) MONO x10^3 (test code 0.73 10*3/uL 0.33-0.92 = 742-7) EOS x10^3 (test code = 0.11 10*3/uL 0.03-0.39 711-2) BASO x10^3 (test code 0.03 10*3/uL 0.01-0.07 = 704-7) Lab Interpretation Abnormal (test code = 78342-0) [id number] 14:06:00 Test Item Value Reference Range Interpretation Comments POCT PREG (test code = 1605) negative On board controls acceptable with present C Line (test code = 3574) POCT PREG LOT # (test code = 3575) [id number] POCT PREG TEST DATE (test 12/02/2023 code = 3576) Lab Interpretation (test code = Normal 09556-0) [facility] [id number] 18:05:00 Test Item Value Reference Range Interpretation Comments SURGICAL OUTREACH (test code = SO) R UN DATE: 10/10/22 [facility] LAB PAGE 1 RUN TIME: 1121 Specimen Inquiry RUN USER: INTERFACE P ATIENT: MEGHANN RIVERA LOC: CL[facility] Stokes #: [id number] AGE/SX: 42/F ROOM: RE10/04/22REG DR: Jeannine Mcnamara MD : 82 BED: DIS: STATUS: DEP REF TLOC: SPEC #: [id number] RECD: 10/05/22 STATUS: ALEXANDRA WEINER #: [id number] JOEY: 10/04/[address] [facility] [address]: Paddy [facility] ENTERED: 10/05/22 SP TYPE: SURGICAL OTHR DR: ORDERED: [id number], ANATOMIC SPEC, SPECIMEN TRACK PROCEDURES: 71242 (10/06/22) SPECIMEN TRACK (10/05/22) TISSUES: A. BREAST BIOPSY, FEMALE LEFT - LEFT AXILLARY MASS ADDENDUM FINDINGS Addendum #1 Entered: 10/10/22 Flow Cytometry Analysis (performed and interpreted by [facility] on 10/06/2022, for details please refer [facility] report #[id number]; a summary of the results is transcribed below) Diagnosis: The sample is insufficient and inadequate for flow cytometric analysis. Addendum comment: No change in original diagnosis. Addendum Signed SIGNATURE ON FILE Serge Quinteros 10/10/221120 FINAL DIAGNOSIS Fibrous tissue, left axillary, 4.0 cm mass, ultrasound guided core biopsy:- Fibrous tissue surrounding amorphous granular material Comment: No lymphoid or epithelial tissue is present in the slides examined. Suggestclinical and image correlation. GROSS DESCRIPTION Left axilla. It consists of 3 tissue fragments measuring 0.2 cm each. They are submittedentirely as A1. Additional tissue is submitted for flow cytometry studies. Excised time: 1:18 p.m. 10/04/2022 Formalin time: 1:20 p.m. Formalin fixation duration: >24 hours- <48 hours CONTINUED ON NEXT PAGE R UN DATE: 10/10/22 [facility] PAGE 2 RUN TIME: 1121 Specimen Inquiry RUN USER: INTERFACE S PEC #: [id number] PATIENT: MEGHANN RIVERA #[id number] (Continued) GROSS DESCRIPTION (Continued) Technical tissue processing and slide preparation performed at [employer],[id number] , [place] [address] Unless gross only, the diagnosis is based upon microscopic examination.Immunohistochemistr y: This test was developed and its performance characteristicsdetermined by this laboratory. It has not been approved nor does it need approval by the USFDA. Appropriate positive and negative controls are reviewed and judged to be acceptable.This laboratory is certified under the Clinical Laboratory Improvement Amendments (CLIA-88)as qualified to perform high complexity clinical laboratory testing. MICROSCOPIC DESCRIPTION Microscopic examination is performed on all specimens and the findings areincorporated into the final diagnosis. Please see diagnosis for findings. -------- Signed SIGNATURE ON FILE Serge Quinteros 10/06/22 1805 END OF REPORT ECG 12 [id number] 21:53:02 Test Item Value Reference Range Interpretation Comments Ventricular rate (test 70 code = 253) Atrial rate (test code = 70 255) DE interval (test code = 176 266) QRSD interval (test code 86 = 260) QT interval (test code = 370 264) QTC interval (test code 399 = 265) P axis 1 (test code = 57 267) QRS axis 1 (test code = 21 268) T wave axis (test code = -12 270) EKG impression (test Normal sinus code = 273) rhythm-Low voltage QRS-Borderline ECG-No previous ECGs available-Electronica lly Signed By Brian ESPINOSA, Padmini ([id number]) on 06/01/2022 4:53:00 [facility] , [id number] 16:46:00 Test Item Value Reference Range Interpretation Comments test urine, POC (test Negative code = 4289582) Internal QC (test code = 257) QC acceptable Lab Interpretation (test code = Normal 51556-4) [facility] [id number] 11:04:18 Test Item Value Reference Range Interpretation Comments Hemoglobin A1C Fingerstick: (test code 11.0 = Hemoglobin A1C Fingerstick:) [facility] in Capillary [id number] 11:04:10 Test Item Value Reference Range Interpretation Comments Blood Glucose: mg/dl (test code = Blood 299 Glucose: mg/dl) [facility] [id number] 21:18:40 Test Item Value Reference Range Interpretation Comments Case Report (test code Surgical Pathology ? ? = [id number]) ?Case: [id number] ? Authorizing Provider: ?Sherrill Bah MD ?Collected: ? 01/05/2021 1139 ?Ordering Location: ? ? [facility] ? ? ?Received: ?01/06/2021 1256 ? [facility] Center ?Pathologist: ? Hyacinth Chua MD ? Specimen: ? ?LARGE INTESTINE, SIGMOID COLON, biopsy ? Final Diagnosis (test s3zljVXeSTSlq3mrRYXkiB code = 5973277002) FuZzEwMzNcZnRuYmpcdWMx IHtccnRmMVxlcGljOTQwMl cthbXhDERfdJKqB6Joqwra VBfgIJ9bOX9tqDscyHOpoG EnQVMpXvLbz7mzh852lEFr a1muXVGKeyaxeUh1lYxvF1 8sa5V9LuyqH86qhCKpDYG6 SEYrCVMxuIZbYNMvFYI8HI BrmDDvH8wbMSWmCP0rvcsa FMdlJMakPOEcfJE7FEHhyY SvY4XpURAhFYyzDBPcnxw9 TpHlHb2nmJHguWyiIXgtNP JkXHBsYWluXGZzMjBccGFy VXOkDRGSTS2RRZTRBTzYI4 iZJUDBEC5YO8h2MKQgonQc ASVjRM3qQ00SZ17WSdDDBX UTC8LgH5jXMHFEKGnQGP6D Sv5JAZMFXMWNQfPRWWCOMx rGTVfSGzoXHL3VHEvWEgao HOFyWNMeYDRrXG7ATi9CKZ KZPcuDHOOWRqDNKRIYG9CE DjVfWVVSRMLYHiPMI5ZAXn FdN6VJQCDSKQaNFFHqhslj MFxwYXJcZnMyMiBSYWNoZW hqBBWUgRB7kcHgMTNUKiET XnypKUZzTBVga9d0NKWsgU FuIFRoYWtlciwgTUQgIDUv Sy1qDZLkLVV3GvN6MUVMBG Jxnl92THU7CyZvk5C9DAZm XyAwVSBbOG7jiWymDULmLM 2xLKBhT0czxY9veen8XqOa ICQfJdC2XJLvxdM5Pyl0UU YkLPkzs9erz3ZrK3HmaBNx zTz7b0spPPJqLfT7nIFvGK cnB0wvolUkgZRrUEPuVBt3 gVpvItZhMCJdv9bxszVbRz NoYXJzZXQwIENhbGlicmk7 jF55YOFiuT1miJQnMOugnc XfHgU7YOzdRESeQcT7QUEv kAVyCPJkN1sqJZByFKpuUM DfULrelZGvHTK9gDmbs2I7 bGVzaGVldHtcZjBcZnMyOC CLe5MzUNq6vDeyQ1CyHYLl TkU2eAPgOAAuGNwqGXCrLT VwbbG7mY87UYzfpyV7qKFz m0Hzw31li610jU2hlGSdAC P7OXNvVEZyrIOxANNfCIC4 GLUtaXCsS2qhKYOaYH9nnj gbOVohPLwfTUPjrBB9XANw lHLnX7QyDTYmWAnqPLCojt w4JjBoLp1heGMxjCjdITsb t6obq2tttRYzCvv3RXHyEo OlKasmAEgqs7Glx7wgSFDh xb4nMKW3iXAlmUzlr4P4bW UxXGRudGJsbnNiZGJcZmV0 PAbxUU4hxv32RUJmGFA6gl 5ybGNccGdicmRyaGVhZFxw V4XhBOUhc905OXOqP5KlRC Zvg9K6dmAhCpNzXXWsbLB5 fuA1XCFxGQo4lMEhpgB5gu QrvRDyF6myoA4lWFRrQA5k pdgko6tkENhyLIytVGNyrA L0hqY4MKHeeIUmV9StgR9v XTVdSOhkHNIqpxl9OiPjAa 9vdGVyeTcyMFxzYmtwYWdl XHBnbmNvbnRccGduZGVjXH BsYWluXHBsYWluXGYwXGZz YbJlzPkyyMhlcM4rQeMvFo XxKFdhGM1mHFMoM4ucdCXs XGCwGQOrY3jkVtVlgL2sxI xmMVxjZjJcZnMyMFxwYXIg SSBoYXZlIHBlcnNvbmFsbH joieE7eWP0ZUDsQXrrKNBc LIFurKHszc0umMpzHAQxIP 5kIGFncmVlIHdpdGggYWxs UZY3XDPheHYliTMysIHiHK BieSByZXNpZGVudHMsIGZl xFzkg5Dsl6MdzMU5gQ3vs6 prm3MbBSXhtON8NK02cfU4 fJ4rVJOrVE4zALDgMA2kxI BulXZqXFWuw76qgMjptbRr ZXBvcnQuXHBsYWluXGYyXG ZzMjhcbGFuZzEwMzNcaGlj aFxmMlxkYmNoXGYyXGxvY2 lmAdEjBdTlDYvgJKI5zD== Clinical Information Blood in stools (test code = 8101709692) Gross Description (test x8tmfRRfITArbEZBCZBiQw code = 3220351173) hlpaOhHYEqzNZuE9Cjpril REvvEO6jBV3pyUctyWZvsM YlTF9CZLLsOkCyFGQfyYNf wqXtZxLhAOZdoLWzmFQ8PO ClIK6lngbiROjkFNlrVFJi ffO7JZWbdYBuQ2KwDFFtFK 6hzzveRAV3NExlmE8swfVD LzrcXt9zzBMzdBpzIrJpEb NoYXJzZXQwXGZuaWwgQXJp HZl3wW6KUzsvZAO7TGYJMt doZCQmXC5Di1gcASXltVGx FIZ0DDwuePWyNGQbKRKuWH o2HWRzUCdjzFGhHK5juJgv UywhdVjsn3GzfNSrVPzqXO SaTXPqWIqmESTeGZ3KQxUw XWvsRjW8UtPmPSx4HRz2CM 9WUyAiICAxNTIxMTMzMSIg NSp7OLonAP8IAOGnBNIqQI p0MGWnVQR2OiMzSOc8BILf XFxmIEFyaWFsIFxcZnMgMT XbMKwuiLKrSN5ipJeuzIQk blxmczIwXHBhciANClxwbG FpblxlcGljTmVzdERvYzEg DQpcbHRycGFyXGxpbjBccm luMCANClxsdHJjaFxmczIy IFNwZWNpbWVuIEEgaXMgcm JpOSe5HXIvrX7pGy1qtCYw tZ3azCRgCCxaGFNfy7i4rE F0wUIzmAS1jHZjjIakJcCd GI9wwGIwQRSAOH23kTNobz VoUKAqHBAaEEDoleOjk1Hz qxRuFPQjV64ycDSnS13iw8 2hZPClm3NwnRriCrQnT2B0 CLLhOQKvo18wkUH8vmHpLv CrPLNuugqqFBY2CL1hwFjs ldBsa0m4zL4iEELqi9R7XW Oho9V2HORwkvOtmFDceCMi HF6fNSteZX4tPUyoXN2qOG KwZH4aYYjcEEHbYCQtoQLj IGlzIGZpbHRlcmVkIHRocm 27X1riMNZkjH7lo5rjWzOu JWNewzOgl3MusCr7eHRtIN ydUJDcjI6kyG6bUZInWZmq bmUgXGxpbmUgSnVsaWUgTW DMyKaqzvK8FDRPFGJiDAMI UCkNClxwbGFpblxlcGljTm JkhHQaDnKquKqqcG09KBXq aSShTQY0VB4nKZRtrrcmXH EfDIIpZRT5XDkuwD57gSLj TERwJPKunRXmrX8BUPIvCC W3CKoqzU30jNIdTM0AARGq WLO0ZEPihSGiKOR5DJ1nvT 0KfQ== Embedded Images (test code = 4366457888) General acute hospital GLUCOSE (AUTOMATED)2021-01-06 12:32:59 Test Item Value Reference Range Interpretation Comments POCT GLU (test code = 7692568517) 195 mg/dL 70-110 H Lab Interpretation (test code = Abnormal 03313-9) [facility] acute hospital GLUCOSE (AUTOMATED)2021-01-06 12:32:59 Test Item Value Reference Range Interpretation Comments POCT GLU (test code = 0542499864) 195 mg/dL 70-110 H Lab Interpretation (test code = Abnormal 43875-4) General acute hospital [id number] 14:33:00 Test Item Value Reference Range Interpretation Comments POCT PREG (test code = 1605) Negative On board controls acceptable with Yes C Line (test code = 3574) POCT PREG LOT # (test code = 3575) [id number] POCT PREG TEST DATE (test 2022-07-03 code = 3576) General acute hospital [id number] 14:33:00 Test Item Value Reference Range Interpretation Comments POCT PREG (test code = 1605) Negative On board controls acceptable with Yes C Line (test code = 3574) POCT PREG LOT # (test code = 3575) [id number] POCT PREG TEST DATE (test 2022-07-03 code = 3576) General acute hospital [id number] 14:32:00 Test Item Value Reference Range Interpretation Comments POCT Glu (age>30days) (test code = 195 mg/dL 70-110 A 3342) Lab Interpretation (test code = Abnormal 64647-9) General acute hospital [id number] 14:32:00 Test Item Value Reference Range Interpretation Comments POCT Glu (age>30days) (test code = 195 mg/dL 70-110 A 3342) Lab Interpretation (test code = Abnormal 62123-4) [facility] RAPID TESTING)2020-09-03 19:28:00 Test Item Value Reference Range Interpretation Comments SARS-CoV-2 Rapid ID NOW Positive Not Detected A (test code = 82347-5) LISA (test code = LISA) ID NOW COVID-19 Assay is an isothermal nucleic acid amplification test intended for the qualitative detection of nucleic acid from SARS-CoV-2 viral RNA in nasopharyngeal (TRANSMISSION CALIBRATION ENGINEER) specimens. It is used under Emergency Use Authorization (EUA) by FDA. The limit of detection (LOD) of the assay is 125 Genome Equivalents/mL. A positive result is indicative of the presence of SARS-CoV-2 RNA. ?Clinical correlation with patient history and other diagnostic information is necessary to determine patient infection status. A negative (Not Detected) result does not preclude SARS-CoV-2 infection. In patients with clinical symptoms and other tests that are consistent with SARS-CoV-2 infection, negative results should be treated as presumptive negative and a new specimen should be tested with alternative PCR molecular test. Invalid: Please collect a new specimen for repeat patient testing if clinically indicated. Lab Interpretation Abnormal (test code = 44752-8) [facility]entonType [facility] Screen - Type and Screen expires at midnight on the 3rd day after it was drawn. A current Type and Screen is required when RBCs are requested. For all other blood products, a Type and Screen performed during the current hospitalization i...2020-09-03 19:25:11 Test Item Value Reference Range Interpretation Comments ABO & RH (test code O Positive Performe d at [facility] = 20) Laboratory Serv [facility] [place], [place] [address]Toll Free: [phone] A No. [id number] IAT (test code = Negative Performed a t [facility] 1185) Laboratory Serv [facility] [place] [address]Toll Free: [phone] A No. [id number] [facility]2020-09-03 19:23:00 Test Item Value Reference Range Interpretation Comments POCT GLU (test code = 2864045304) 270 mg/dL 70-110 H Lab Interpretation (test code = Abnormal 61915-3) [facility]entonUS OVARY [id number] 18:20:07 Findings consistent with right ovarian torsion. Preliminary Report Dictated by Resident: Buddy Barton MD., have reviewed this study and agree with the abovereport.EXAM: US OVARY TORSION HISTORY: 40 years -old Female with right pelvic pain, r/o ovarian torsion . TECHNIQUE: Dedicated ultrasound imaging of the pelvis was performedincluding color Doppler evaluation. Additionally, sp ectral Dopplerevaluation of the ovaries was performed. Level Vial Sealer images wereobtained for the record. COMPARISON: None FINDINGS: Uterus: The anteverted and retroflexed uterus is normal in size, measuring 9.3 x4.8 x 6.2 cm (145.9 mL). The myometrium is homogenous. No focal lesion isdetected. The endometrium is normal in appearance. Endometrial thicknessmeasures 7 mm. The cervix is unremarkable. Right Adnexa:Ovary: The right ovary measures 4.7 x 2.8 x 3.3 cm (22.8 mL). The rightovary is heterogenous with a 2.3 cm echogenic structure without peripheralflow on color Doppler, may represent a corpus luteal cyst. Neither arterialor venous waveforms are observed in the right ovary. . Other: None Left Adnexa:Ovary: The left ovary is not visualized transvaginally. It measures 3.0 x2.2 x 2.5 cm (8.3 mL)on transabdominal imaging Normal arterial and venouswaveforms are observed at the left ovary. . Other: None Cul-de-sac: Trace free fluid is visualized. [facility], Radiant Results Inft User - 09/03/2020 12:21 PM CSTEXAM: US OVARY TORSIONHISTORY: 40 years -old Female with right pelvic pain, r/o ovarian torsion .TECHNIQUE: Dedicated ultrasound imaging of the pelvis was performedincluding color Doppler evaluation. Additionally, spectral Dopplerevaluation of the ovaries was performed. Level Vial Sealer images wer eobtained for the record. COMPARISON: NoneFINDINGS:Uterus: The anteverted and retroflexed uterus is normal in size, measuring 9.3 x4.8 x 6.2 cm (145.9 mL). The myometrium is homogenous. No focal lesionisdetected. The endometrium is normal in appearance. Endometrial thicknessmeasures 7 mm. The cervix is unremarkable.Right Adnexa:Ovary: The right ovary measures 4.7 x 2.8 x 3.3 cm (22.8 mL). The rightovary is heterogenous with a 2.3 cm echogenic structure without peripheralflow on color Doppler, may represent a corpus luteal cyst. Neither arterialor venous waveforms are observed in the right ovary. .Other: NoneLeft Adnexa:Ovary: The left ovary is not visualized transvaginally. It measures 3.0 x2.2 x 2.5 cm (8.3 mL) on transabdominal imaging Normal arterial and venouswaveforms are observed at the left ovary. . Other: LvojPsx-vx-dhn: Trace free fluid is visualized.IMPRESSIONFindings consistent withright ovarian torsion.Preliminary Report Dictated by Resident: Buddy Fernandez, Buddy Issa MD.,have reviewed this study and agree with the abovereport.[facility] (ALB, T.PRO, BILI T, BU/BC, ALT, AST, ALK PHOS)2020-09-03 15:58:00 Test Item Value Reference Range Interpretation Comments TOTAL BILI (test code = 4856807019) 0.6 mg/dL 0.1-1.1 BILI UNCON (test code = 6159346134) 0.5 mg/dL 0.1-1.1 BILI CONJ (test code = 2005356922) 0.0 mg/dL 0-0.3 T PROTEIN (test code = 9768287382) 7.4 g/dL 6.3-8.2 ALBUMIN (test code = 6902000154) 4.0 g/dL 3.5-5 ALK PHOS (test code = 4940004246) 98 U/L 34-122 ALTv (test code = 1742-6) 17 U/L 5-35 AST(SGOT) (test code = 5929795750) 37 U/L 13-40 Lab Interpretation (test code = Normal 44189-2) [facility]entonLipase [id number] 15:58:00 Test Item Value Reference Range Interpretation Comments LIPASE (test code = 3597196490) 153 U/L 0-220 Lab Interpretation (test code = Normal 55682-9) [facility]entonBasic Metabolic Panel (NA, K, CL, CO2, GLUCOSE, BUN, CREATININE, CA)2020-09-03 15:57:00 Test Item Value Reference Range Interpretation Comments NA (test code = 136 mmol/L 135-145 8990033544) K (test code = 3.8 mmol/L 3.5-5 4564592522) CL (test code = 102 mmol/L 98-108 3068226279) CO2 TOTAL (test code = 26 mmol/L 23-31 6467746392) AGAP (test code = 2-16 3202768517) BUN (test code = 8 mg/dL 7-23 3015388280) GLUCOSE (test code = 334 mg/dL 70-110 H 1537650633) CREATININE (test code = 0.63 mg/dL 0.5-1.04 9641935506) CALCIUM (test code = 9.0 mg/dL 8.6-10.6 5583606990) eGFR Calculation mL/min/1.73m2 (Non-) (test code = 3888213245) eGFR Calculation mL/min/1.73m2 () (test code = 8191862011) LISA (test code = LISA) Association of Glomerular Filtration Rate (GFR) and Staging of Kidney Disease* + --+ --+ ------+| GFR (mL/min/1.73 m2) ?| With Kidney Damage ?| ?Without Kidney Damage+ --------+ --------+ +| ?>90 ?| ?Stage one ?| ? Normal ?+ ---+ ---+ -------+| ?60-89 ?| ?Stage two ?| ? Decreased GFR ? + --+ --+ ------+| ?30-59 ?| ?Stage three ?| ? Stage three ? + --+ --+ ------+| ?15-29 ?| ?Stage four ? | ? Stage four ?+ ---+ ---+ -------+| ?<15 (or dialysis) ? ?| ?Stage five ? | ? Stage five ?+ ---+ ---+ -------+ *Each stage assumes the associated GFR level has been in effect for at least three months. ?Stages 1 to 5, with or without kidney disease, indicate chronic kidney disease. Notes: Determination of stages one and two (with eGFR >59mL/min/1.73 m2) requires estimation of kidney damage for at least three months as defined by structural or functional abnormalities of the kidney, manifested by either:Pathological abnormalities or Markers of kidney damage (including abnormalities in the composition of the blood or urine or abnormalities in imaging tests). Lab Interpretation Abnormal (test code = 65173-4) [facility]entonUrinalysis2021-01-01 15:35:00 Test Item Value Reference Range Interpretation Comments APPEARANCE (test code = Hazy Clear A 9073215591) COLOR (test code = Ericka Yellow A 6339511515) PH (test code = 4.8-8.0 3903470844) SP GRAVITY (test code = 1.003-1.030 H 9939605155) GLU U QUAL (test code = 500 mg/dL Normal A 2199447142) BLOOD (test code = 2+ Negative A 4860299773) KETONES (test code = 20 mg/dL Negative A 9053675454) PROTEIN (test code = 100 mg/dL Negative A 2887-8) UROBILIN (test code = 2.0 mg/dL Normal A 1538139094) BILIRUBIN (test code = Negative Negative 5939823268) NITRITE (test code = Negative Negative 9301566256) LEUK ADRIEL (test code = Negative Negative 9382770484) RBC/HPF (test code = See_Comment H [Autom ated message] 0127513454) The system [employer] generated this result transmit ivis reference range : 0 - 3 HPF. The refe rence range was not u sed to interpret th is result as normal/abnormal . WBC/HPF (test code = See_Comment [Autom ated message] 4218232826) The system [employer] generated this result transmit ivis reference range : 0 - 5 HPF. The refe rence range was not u sed to interpret th is result as normal/abnormal . BACTERIA (test code = Moderate Negative A 4348717344) MUCOUS (test code = Marked Negative LPF A 1463892461) SQ EPITH (test code = HPF 5066671234) HYAL CAST (test code = See_Comment H [Aut omated message] 5649485302) The system [employer] generated this result transmit ivis reference range : <=2 LPF. The refere nce range was not u sed to interpret th is result as normal/abnormal . Lab Interpretation (test Abnormal code = 24470-7) [facility] with Sinxsstpuymd8349-65-01 15:22:00 Test Item Value Reference Range Interpretation Comments WBC (test code = See_Comment [Automated 1190-2) message] The sy stem which generated this result transmitted reference range : 4.30 - 11.10 10*3/?L. The reference range was not used to interpret this result as normal/abnormal . RBC (test code = See_Comment [Automated 069-8) message] The sy stem which generated this result transmitted reference range : 3.93 - 5.25 10*6/?L. The reference range was not used to interpret this result as normal/abnormal . HGB (test code = 12.3 g/dL 11.6-15 718-7) HCT (test code = 37.9 % 35.7-45.2 4544-3) MCV (test code = 79.3 fL 80.6-95.5 L 787-2) MCH (test code = 25.7 pg 25.9-32.8 L 785-6) MCHC (test code = 32.5 g/dL 31.6-35.1 786-4) RDW-SD (test code = 43.4 fL 39-49.9 23329-4) RDW-CV (test code = 15.1 % 12-15.5 788-0) PLT (test code = See_Comment [Automated 777-3) message] The sy stem which generated this result transmitted reference range : 166 - 358 10*3/ ?L. The reference r leonarda was not used to interpret this result as normal/abnormal . MPV (test code = 10.7 fL 9.5-12.9 54840-7) NRBC/100 WBC (test See_Comment [Automat ed code = 4688278661) message] The system which generated this result transmitted reference range : 0.0 - 10.0 /100 WBCs. The refer ence range was not u sed to interpret th is result as normal/abnormal . NRBC x10^3 (test code <0.01 See_Comment [Auto mated = 6059942983) message] The s ystem which generated this result transmitted reference range : 10*3/?L. The reference range was not used to interpret this result as normal/abnormal . GRAN MAT (NEUT) % 61.7 % (test code = 770-8) IMM GRAN % (test code 0.30 % = 0094466171) LYMPH % (test code = 28.6 % 736-9) MONO % (test code = 6.1 % 5905-5) EOS % (test code = 2.9 % 713-8) BASO % (test code = 0.4 % 706-2) GRAN MAT x10^3(ANC) 4.61 10*3/uL 1.88-7.09 (test code = 0068981379) IMM GRAN x10^3 (test <0.03 0-0.06 code = [id number]) LYMPH x10^3 (test code 2.14 10*3/uL 1.32-3.29 = 731-0) MONO x10^3 (test code 0.46 10*3/uL 0.33-0.92 = 742-7) EOS x10^3 (test code = 0.22 10*3/uL 0.03-0.39 711-2) BASO x10^3 (test code 0.03 10*3/uL 0.01-0.07 = 704-7) Lab Interpretation Abnormal (test code = 12714-0) General acute hospital [id number] 15:15:00 Test Item Value Reference Range Interpretation Comments POCT PREG (test code = 1605) negative On board controls acceptable with present C Line (test code = 3574) POCT PREG LOT # (test code = 3575) [id number] POCT PREG TEST DATE (test code = 3576) Lab Interpretation (test code = Normal 14128-3) General acute hospital GLUCOSE (AUTOMATED)2020-07-11 18:55:00 Test Item Value Reference Range Interpretation Comments POCT GLU (test code = [id number]) 254 mg/dL 70-110 H Lab Interpretation (test code = Abnormal 41397-5) [facility] within 30 minutes prior to 4TH dose.2020-07-11 16:17:00 Test Item Value Reference Range Interpretation Comments VANCO TROUGH (test code <5.0 10-20 L = [id number]) LISA (test code = LISA) Toxic Range: ?>20 ug/mL 15-20 ug/mL is recommended for severe infection or when Vancomycin TIRSO is greater than or equal to 2. Lab Interpretation (test Abnormal code = 51114-4) [id number] 14:46:00 Test Item Value Reference Range Interpretation Comments CRP (test code = 0911813774) 8.0 mg/dL <0.8 H Lab Interpretation (test code = Abnormal 32555-9) General acute hospital GLUCOSE (AUTOMATED)2020-07-11 14:42:00 Test Item Value Reference Range Interpretation Comments POCT GLU (test code = 5257618330) 232 mg/dL 70-110 H Lab Interpretation (test code = Abnormal 42177-2) [facility] (NA, K, CL, CO2, GLUCOSE, BUN, CREATININE, CA)2020-07-11 13:00:00 Test Item Value Reference Range Interpretation Comments NA (test code = 135 mmol/L 135-145 3478805762) K (test code = 4.1 mmol/L 3.5-5 9750226159) CL (test code = 106 mmol/L 98-108 8899482360) CO2 TOTAL (test code = 25 mmol/L 23-31 9858750243) AGAP (test code = 2-16 2993986601) BUN (test code = 4 mg/dL 7-23 L 5502798357) GLUCOSE (test code = 227 mg/dL 70-110 H 5694230421) CREATININE (test code = 0.57 mg/dL 0.5-1.04 2473534443) CALCIUM (test code = 8.4 mg/dL 8.6-10.6 L 1703202040) eGFR Calculation mL/min/1.73m2 (Non-) (test code = 0326156385) eGFR Calculation mL/min/1.73m2 () (test code = 7518083846) LISA (test code = LISA) Association of Glomerular Filtration Rate (GFR) and Staging of Kidney Disease* + --+ --+ ------+| GFR (mL/min/1.73 m2) ?| With Kidney Damage ?| ?Without Kidney Damage+ --------+ --------+ +| ?>90 ?| ?Stage one ?| ? Normal ?+ ---+ ---+ -------+| ?60-89 ?| ?Stage two ?| ? Decreased GFR ? + --+ --+ ------+| ?30-59 ?| ?Stage three ?| ? Stage three ? + --+ --+ ------+| ?15-29 ?| ?Stage four ? | ? Stage four ?+ ---+ ---+ -------+| ?<15 (or dialysis) ? ?| ?Stage five ? | ? Stage five ?+ ---+ ---+ -------+ *Each stage assumes the associated GFR level has been in effect for at least three months. ?Stages 1 to 5, with or without kidney disease, indicate chronic kidney disease. Notes: Determination of stages one and two (with eGFR >59mL/min/1.73 m2) requires estimation of kidney damage for at least three months as defined by structural or functional abnormalities of the kidney, manifested by either:Pathological abnormalities or Markers of kidney damage (including abnormalities in the composition of the blood or urine or abnormalities in imaging tests). Lab Interpretation Abnormal (test code = 59118-4) [facility] WITH [id number] 12:11:00 Test Item Value Reference Range Interpretation Comments WBC (test code = See_Comment [Automated 6690-2) message] The sy stem which generated this result transmitted reference range : 4.30 - 11.10 10*3/?L. The reference range was not used to interpret this result as normal/abnormal . RBC (test code = See_Comment [Automated 789-8) message] The sy stem which generated this result transmitted reference range : 3.93 - 5.25 10*6/?L. The reference range was not used to interpret this result as normal/abnormal . HGB (test code = 10.8 g/dL 11.6-15 L 718-7) HCT (test code = 34.1 % 35.7-45.2 L 4544-3) MCV (test code = 82.2 fL 80.6-95.5 787-2) MCH (test code = 26.0 pg 25.9-32.8 785-6) MCHC (test code = 31.7 g/dL 31.6-35.1 786-4) RDW-SD (test code = 44.1 fL 39-49.9 24955-7) RDW-CV (test code = 14.6 % 12-15.5 788-0) PLT (test code = See_Comment [Automated 777-3) message] The sy stem which generated this result transmitted reference range : 166 - 358 10*3/ ?L. The reference r leonarda was not used to interpret this result as normal/abnormal . MPV (test code = 11.5 fL 9.5-12.9 43426-1) NRBC/100 WBC (test See_Comment [Automat ed code = 8289052868) message] The system which generated this result transmitted reference range : 0.0 - 10.0 /100 WBCs. The refer ence range was not u sed to interpret th is result as normal/abnormal . NRBC x10^3 (test code <0.01 See_Comment [Auto mated = 8393156500) message] The s ystem which generated this result transmitted reference range : 10*3/?L. The reference range was not used to interpret this result as normal/abnormal . GRAN MAT (NEUT) % 56.2 % (test code = 770-8) IMM GRAN % (test code 0.20 % = 2973889220) LYMPH % (test code = 31.7 % 736-9) MONO % (test code = 10.5 % 5905-5) EOS % (test code = 0.9 % 713-8) BASO % (test code = 0.5 % 706-2) GRAN MAT x10^3(ANC) 3.12 10*3/uL 1.88-7.09 (test code = 0528111215) IMM GRAN x10^3 (test <0.03 0-0.06 code = 5116396516) LYMPH x10^3 (test code 1.76 10*3/uL 1.32-3.29 = 731-0) MONO x10^3 (test code 0.58 10*3/uL 0.33-0.92 = 742-7) EOS x10^3 (test code = 0.05 10*3/uL 0.03-0.39 711-2) BASO x10^3 (test code 0.03 10*3/uL 0.01-0.07 = 704-7) Lab Interpretation Abnormal (test code = 68655-1) [facility] GLUCOSE (AUTOMATED)2020-07-10 23:04:00 Test Item Value Reference Range Interpretation Comments POCT GLU (test code = 7933862516) 225 mg/dL 70-110 H Lab Interpretation (test code = Abnormal 78113-4) [facility] acute hospital GLUCOSE (AUTOMATED)2020-07-10 18:13:00 Test Item Value Reference Range Interpretation Comments POCT GLU (test code = 2597008604) 286 mg/dL 70-110 H Lab Interpretation (test code = Abnormal 48525-4) [id number]00 Test Item Value Reference Interpretation Comments Range D-DIMER (test code = See_Comment H [Autom ated 5196000889) message] The system which generated this result transmitted reference range : <0.41 ?g/mL (FEU). The reference range was not used to interpret this result as normal/abnormal . LISA (test code = This test may be LISA) used in conjunction with a clinical pretest probability (PTP) assessment model to exclude venous thromboembolism (VTE) in patients suspected of deep venous thrombosis (DVT) and pulmonary embolism (PE) A D-Dimer value less than 0.50 ?g/ml (FEU) has a negative predicative value of 96 to 100% (95% CI)and 97 to 100% (95% CI) as an aid in the diagnosis of deep vein thrombosis (DVT) and pulmonary embolism when there is low or moderate pretest probability of PE or DVT. D-Dimer values are expressed in initial fibrinogen equivalent units (FEU)" The assay results should be used with other information, including the clinical context, in forming a diagnosis. Lab Interpretation Abnormal (test code = 55599-8) General acute hospital GLUCOSE (AUTOMATED)2020-07-10 13:57:00 Test Item Value Reference Range Interpretation Comments POCT GLU (test code = 6328474932) 237 mg/dL 70-110 H Lab Interpretation (test code = Abnormal 16662-6) General acute hospital GLUCOSE (AUTOMATED)2020-07-10 13:57:00 Test Item Value Reference Range Interpretation Comments POCT GLU (test code = 3864906491) 262 mg/dL 70-110 H Lab Interpretation (test code = Abnormal 82596-1) [facility] Metabolic Panel (NA, K, CL, CO2, GLUCOSE, BUN, CREATININE, CA)2020-07-10 12:27:00 Test Item Value Reference Range Interpretation Comments NA (test code = 134 mmol/L 135-145 L 5494004606) K (test code = 4.6 mmol/L 3.5-5 4416057573) CL (test code = 103 mmol/L 98-108 1037068568) CO2 TOTAL (test code = 28 mmol/L 23-31 0787263276) AGAP (test code = 2-16 7333297425) BUN (test code = 8 mg/dL 7-23 7458660605) GLUCOSE (test code = 258 mg/dL 70-110 H 8655623053) CREATININE (test code = 0.82 mg/dL 0.5-1.04 4606893514) CALCIUM (test code = 8.9 mg/dL 8.6-10.6 9691174158) eGFR Calculation mL/min/1.73m2 (Non-) (test code = 8540037648) eGFR Calculation mL/min/1.73m2 () (test code = 5034051989) LISA (test code = LISA) Association of Glomerular Filtration Rate (GFR) and Staging of Kidney Disease* + --+ --+ ------+| GFR (mL/min/1.73 m2) ?| With Kidney Damage ?| ?Without Kidney Damage+ --------+ --------+ +| ?>90 ?| ?Stage one ?| ? Normal ?+ ---+ ---+ -------+| ?60-89 ?| ?Stage two ?| ? Decreased GFR ? + --+ --+ ------+| ?30-59 ?| ?Stage three ?| ? Stage three ? + --+ --+ ------+| ?15-29 ?| ?Stage four ? | ? Stage four ?+ ---+ ---+ -------+| ?<15 (or dialysis) ? ?| ?Stage five ? | ? Stage five ?+ ---+ ---+ -------+ *Each stage assumes the associated GFR level has been in effect for at least three months. ?Stages 1 to 5, with or without kidney disease, indicate chronic kidney disease. Notes: Determination of stages one and two (with eGFR >59mL/min/1.73 m2) requires estimation of kidney damage for at least three months as defined by structural or functional abnormalities of the kidney, manifested by either:Pathological abnormalities or Markers of kidney damage (including abnormalities in the composition of the blood or urine or abnormalities in imaging tests). Lab Interpretation Abnormal (test code = 98701-5) [facility] with [id number] 11:57:00 Test Item Value Reference Range Interpretation Comments WBC (test code = See_Comment [Automated 4651-2) message] The sy stem which generated this result transmitted reference range : 4.30 - 11.10 10*3/?L. The reference range was not used to interpret this result as normal/abnormal . RBC (test code = See_Comment [Automated 339-8) message] The sy stem which generated this result transmitted reference range : 3.93 - 5.25 10*6/?L. The reference range was not used to interpret this result as normal/abnormal . HGB (test code = 11.2 g/dL 11.6-15 L 718-7) HCT (test code = 34.9 % 35.7-45.2 L 4544-3) MCV (test code = 81.0 fL 80.6-95.5 787-2) MCH (test code = 26.0 pg 25.9-32.8 785-6) MCHC (test code = 32.1 g/dL 31.6-35.1 786-4) RDW-SD (test code = 42.4 fL 39-49.9 65318-6) RDW-CV (test code = 14.5 % 12-15.5 788-0) PLT (test code = See_Comment [Automated 777-3) message] The sy stem which generated this result transmitted reference range : 166 - 358 10*3/ ?L. The reference r leonarda was not used to interpret this result as normal/abnormal . MPV (test code = 11.1 fL 9.5-12.9 56651-1) NRBC/100 WBC (test See_Comment [Automat ed code = 9529363919) message] The system which generated this result transmitted reference range : 0.0 - 10.0 /100 WBCs. The refer ence range was not u sed to interpret th is result as normal/abnormal . NRBC x10^3 (test code <0.01 See_Comment [Auto mated = 2682999660) message] The s ystem which generated this result transmitted reference range : 10*3/?L. The reference range was not used to interpret this result as normal/abnormal . GRAN MAT (NEUT) % 65.2 % (test code = 770-8) IMM GRAN % (test code 0.20 % = 2741514204) LYMPH % (test code = 21.5 % 736-9) MONO % (test code = 10.9 % 5905-5) EOS % (test code = 1.8 % 713-8) BASO % (test code = 0.4 % 706-2) GRAN MAT x10^3(ANC) 3.54 10*3/uL 1.88-7.09 (test code = 7712096438) IMM GRAN x10^3 (test <0.03 0-0.06 code = 1035009057) LYMPH x10^3 (test code 1.17 10*3/uL 1.32-3.29 L = 731-0) MONO x10^3 (test code 0.59 10*3/uL 0.33-0.92 = 742-7) EOS x10^3 (test code = 0.10 10*3/uL 0.03-0.39 711-2) BASO x10^3 (test code <0.03 0.01-0.07 = 704-7) Lab Interpretation Abnormal (test code = 53488-4) [facility] [id number] 11:12:00 Test Item Value Reference Range Interpretation Comments LACTIC ACID (test code = 0.90 mmol/L 8114164956) [facility] [id number] 06:40:18 No acute cardiopulmonary abnormality is present. Disclaimer: Generally, the findings on chest imaging in COVID-19 are notspecific, and overlap with other infections, including influenza, H1N1,SARS andMERS.According to the Centers for Disease Control (CDC) and recent statement ofthe [employer], viral testing remains the only specificmethod of diagnosis. Confirmation with the viraltest is required, even ifradiologic findings are suggestive of COVID-[address]. Preliminary Report Dictated by Resident: Buddy Tsai MD., have reviewed this study and agree with the abovereport.XR CHEST 1 VW HISTORY: fever, COVID positive COMPARISON: None available FINDINGS: The lungs are clear. No focal consolidation is present. No pleural effusion or pneumothorax is present. The cardiomediastinal silhouette is normal. The osseous structures are unremarkable. [facility], RadiantResults Inft User - 07/10/2020 12:41 AM CSTXR CHEST 1 VWHISTORY: fever, COVID positive COMPARISON: None availableFINDINGS:The lungs are clear. No focal consolidation is present. No pleural effusion or pneumothorax is present.The cardiomediastinal silhouette is normal.The osseous structures are unremarkable.IMPRESSIONNo acute cardiopulmonary abnormality is present.Disclaimer: Generally, the findings on chest imaging in COVID-19 are notspecific, and overlap with other infections, including influenza, H1N1,SARS and MERS.According to the Centers for Disease Control (CDC) and recent statement ofthe [employer], viral testing remains the only specificmethod of diagnosis. Confirmation with the viral test is required, even ifradiologic findings are suggestive of COVID-[address]Preliminary Report Dictated by Resident: Buddy Pierre MD., have reviewed this study and agree with the abovereport.[facility] [id number] 03:16:00 Test Item Value Reference Range Interpretation Comments TSH (test code = See_Comment Biotin has been 7356212117) reported to cau se a negative bias, interpret resul ts relative to pat gregoryshaka's use of biotin. [Automated mess age] The system [employer] generated this result transmitted ref erence range: 0.45 - 4 .70 mIU/L. The refe rence range was not u sed to interpret this result as normal/abnor mal. Lab Interpretation (test Normal code = 97673-9) [facility] [id number] 03:05:13 1. ?Cellulitis with soft tissue gas involving the posteromedial aspect ofthe right upper thigh. There is associated phlegmonous changes without adrainable fluid collection. Correlate for history of penetrating injury;the abnormality does not involve the perineum. 2. ?Hepatomegaly with diffuse fatty infiltration. 3. ?Fat-containing umbilical hernia. 4. ?Sigmoid colon diverticulosis without diverticulitis. Preliminary Report Dictated by Resident: Buddy Tsai MD., have reviewed this study and agree with the abovereport.EXAM: CT ABDOMEN AND PELVIS WITH CONTRAST HISTORY: [id number] with abscess of the abdominal and rectalregion. COMPARISON: None. TECHNIQUE AND FINDINGS: Contiguous axial imaging from the level of the lungbases through the pubic symphysis was performed afterthe uncomplicatedadministration of 120 cc of intravenous Omnipaque contrast. Coronal andsagittal reconstructions were obtained. ?Auto mA and/or iterativereconstruction were used to reduce radiation dose. FINDINGS: LOWER THORAX: The lung bases are clear. No cardiomegaly. LIVER: The liver is enlarged and measures 20.2 cm along the midclavicularline. It is diffusely hypoattenuating, suggestive of fatty infiltrationwith focal sparing around the gallbladder fossa. No focal hepatic lesion. GALLBLADDER ANDBILIARY TREE: No biliary ductal dilation. No gallbladderwall thickening. SPLEEN: No splenomegaly. A subcentimeter splenule is noted. PANCREAS: No ductal dilation or masses. ADRENAL GLANDS: No adrenal nodules. KIDNEYS: No hydronephrosis, stones, or masses. PERITONEUM AND RETROPERITONEUM: No free air orfluid. Small fat- containingumbilical hernia is present. LYMPH NODES: No abdominopelvic lymphadenopathy. Asymmetrically prominentright inguinal lymph nodes are likely reactive. GI TRACT: No dilation or wall thickening. Mild sigmoid colon diverticulosiswithout pericolonic inflammatory changes. Prior appendectomy. PELVIS/BLADDER: The bladder is decompressed, limiting evaluation. Theuterus and adnexa areunremarkable. VESSELS: Unremarkable. BONES AND SOFT TISSUES: There is inflammatory stranding involving thesubcutaneous tissues of the right posteromedial thigh with foci of gas. Nodrainable fluid collection is noted. A focal area of soft tissue gasmeasures 1.6 x 1 x 2.3 cm. No suspicious lytic or sclerotic bony lesions. [facility], Radiant Results Inft User - 07/09/2020 9:06 PM CSTEXAM: CT ABDOMEN AND PELVIS WITH CONTRASTHISTORY: 40-year-old female with abscess of the abdominal and rectalregion.COMPARISON: None.TECHNIQUE AND FINDINGS: Contiguous axial imaging from the level of the lungbases through the pubic symphysis was performed after the uncomplicatedadministration of 120 cc of intravenous Omnipaquecontrast. Coronal andsagittal reconstructions were obtained. Auto mA and/or iterativereconstruction were used to reduce radiation dose.FINDINGS:LOWER THORAX: The lung bases are clear. No cardiomegaly.LIVER: The liver is enlarged and measures 20.2 cm along the midclavicularline. It is diffusely hypoattenuating, suggestive of fatty infiltrationwith focal sparing around the gallbladder fossa. No focal hepatic lesion.GALLBLADDER AND BILIARY TREE: No biliary ductal dilation. No gallbladderwall thickening.SPLEEN: No splenomegaly. A subcentimeter splenule is noted.PANCREAS: No ductal dilation or masses.ADRENAL GLANDS: No adrenal nodules.KIDNEYS: No hydronephrosis, stones, or masses.PERITONEUM AND RETROPERITONEUM: No free air or fluid. Small fat- containingumbilical hernia is present.LYMPH NODES: No abdominopelvic lymphadenopathy. Asymmetrically prominentright inguinal lymph nodes are likely reactive.GI TRACT: No dilation or wall thickening. Mild sigmoid colon diverticulosiswithout pericolonic inflammatory changes. Prior appendectomy.PELVIS/BLADDER: The bladder is decompressed, limiting evaluation. Theuterus and adnexa are unremarkable.VESSELS: Unremarkable.BONES AND SOFT TISSUES: There is inflammatory stranding involving thesubcutaneous tissues of the right posteromedial thigh with foci of gas. Nodrainable fluid collection is noted. A focal area of soft tissue gasmeasures 1.6 x 1 x 2.3 cm. No suspicious lytic or sclerotic bony lesions.IMPRESSION1. Cellulitis with soft tissue gas involving the posteromedial aspect ofthe right upper thigh. There is associated phlegmonous changes without adrainable fluid collection. Correlate for history of penetrating injury;the abnormality does not involve the perineum.2. Hepatomegaly with diffuse fatty infiltration.3. Fat-containing umbilical hernia.4. Sigmoid colon diverticulosis without diverticulitis.Preliminary Report Dictated by Resident: Anette Noel, Buddy Issa MD., have reviewed this study and agree with the abovereport.[facility] GLYCOSYLATED HEMOGLOBIN (A1C)2020-07-10 02:53:00 Test Item Value Reference Range Interpretation Comments HGB A1C (test code = 10.9 % 4-6 H 4548-4) LISA (test code = LISA) %A1C (NGSP) Interpretation (ADA)4.8-5.6 ? ? Normal or (Non-Diabetic Range)5.7-6.4 ? ? Increased Risk (Pre-Diabetic)>6.5 ?Diabetes Indicated Lab Interpretation Abnormal (test code = 90970-4) [facility] [id number] 01:13:00 Test Item Value Reference Range Interpretation Comments POCT PREG (test code = 1605) Negative On board controls acceptable with Present C Line (test code = 3574) POCT PREG LOT # (test code = HCG [id number]) POCT PREG TEST DATE (test 12/01/2021 code = 3576) Lab Interpretation (test code = Normal 38395-6) [facility] NOW RAPID TESTING)2020-07-10 01:08:00 Test Item Value Reference Range Interpretation Comments SARS-CoV-2 Rapid ID NOW Positive Not Detected A (test code = 92663-1) LISA (test code = LISA) ID NOW COVID-19 Assay is an isothermal nucleic acid amplification test intended for the qualitative detection of nucleic acid from SARS-CoV-2 viral RNA in nasopharyngeal (TRANSMISSION CALIBRATION ENGINEER) specimens. It is used under Emergency Use Authorization (EUA) by FDA. The limit of detection (LOD) of the assay is 125 Genome Equivalents/mL. A positive result is indicative of the presence of SARS-CoV-2 RNA. ?Clinical correlation with patient history and other diagnostic information is necessary to determine patient infection status. A negative (Not Detected) result does not preclude SARS-CoV-2 infection. In patients with clinical symptoms and other tests that are consistent with SARS-CoV-2 infection, negative results should be treated as presumptive negative and a new specimen should be tested with alternative PCR molecular test. Invalid: Please collect a new specimen for repeat patient testing if clinically indicated. Lab Interpretation Abnormal (test code = 43263-0) [facility] METABOLIC PANEL (NA, K, CL, CO2, GLUCOSE, BUN, CREATININE, CA)2020-07-10 00:58:00 Test Item Value Reference Range Interpretation Comments NA (test code = 135 mmol/L 135-145 7441835001) K (test code = 4.0 mmol/L 3.5-5 1010960427) CL (test code = 100 mmol/L 98-108 2916923843) CO2 TOTAL (test code = 26 mmol/L 23-31 7811512681) AGAP (test code = 2-16 8130011071) BUN (test code = 9 mg/dL 7-23 8367482710) GLUCOSE (test code = 230 mg/dL 70-110 H 5538030815) CREATININE (test code = 0.82 mg/dL 0.5-1.04 2332259400) CALCIUM (test code = 9.3 mg/dL 8.6-10.6 9437574595) eGFR Calculation mL/min/1.73m2 (Non-) (test code = 1305489067) eGFR Calculation mL/min/1.73m2 () (test code = 4717673565) LISA (test code = LISA) Association of Glomerular Filtration Rate (GFR) and Staging of Kidney Disease* + --+ --+ ------+| GFR (mL/min/1.73 m2) ?| With Kidney Damage ?| ?Without Kidney Damage+ --------+ --------+ +| ?>90 ?| ?Stage one ?| ? Normal ?+ ---+ ---+ -------+| ?60-89 ?| ?Stage two ?| ? Decreased GFR ? + --+ --+ ------+| ?30-59 ?| ?Stage three ?| ? Stage three ? + --+ --+ ------+| ?15-29 ?| ?Stage four ? | ? Stage four ?+ ---+ ---+ -------+| ?<15 (or dialysis) ? ?| ?Stage five ? | ? Stage five ?+ ---+ ---+ -------+ *Each stage assumes the associated GFR level has been in effect for at least three months. ?Stages 1 to 5, with or without kidney disease, indicate chronic kidney disease. Notes: Determination of stages one and two (with eGFR >59mL/min/1.73 m2) requires estimation of kidney damage for at least three months as defined by structural or functional abnormalities of the kidney, manifested by either:Pathological abnormalities or Markers of kidney damage (including abnormalities in the composition of the blood or urine or abnormalities in imaging tests). Lab Interpretation Abnormal (test code = 91594-6) [facility] WITH [id number] 00:46:00 Test Item Value Reference Range Interpretation Comments WBC (test code = See_Comment [Automated 9484-2) message] The sy stem which generated this result transmitted reference range : 4.30 - 11.10 10*3/?L. The reference range was not used to interpret this result as normal/abnormal . RBC (test code = See_Comment [Automated 748-6) message] The sy stem which generated this result transmitted reference range : 3.93 - 5.25 10*6/?L. The reference range was not used to interpret this result as normal/abnormal . HGB (test code = 11.9 g/dL 11.6-15 718-7) HCT (test code = 37.4 % 35.7-45.2 4544-3) MCV (test code = 81.3 fL 80.6-95.5 787-2) MCH (test code = 25.9 pg 25.9-32.8 785-6) MCHC (test code = 31.8 g/dL 31.6-35.1 786-4) RDW-SD (test code = 42.7 fL 39-49.9 85487-1) RDW-CV (test code = 14.5 % 12-15.5 788-0) PLT (test code = See_Comment [Automated 777-3) message] The sy stem which generated this result transmitted reference range : 166 - 358 10*3/ ?L. The reference r leonarda was not used to interpret this result as normal/abnormal . MPV (test code = 10.7 fL 9.5-12.9 85931-1) NRBC/100 WBC (test See_Comment [Automat ed code = 3474597861) message] The system which generated this result transmitted reference range : 0.0 - 10.0 /100 WBCs. The refer ence range was not u sed to interpret th is result as normal/abnormal . NRBC x10^3 (test code <0.01 See_Comment [Auto mated = 6060206178) message] The s ystem which generated this result transmitted reference range : 10*3/?L. The reference range was not used to interpret this result as normal/abnormal . GRAN MAT (NEUT) % 69.3 % (test code = 770-8) IMM GRAN % (test code 0.20 % = 5309659421) LYMPH % (test code = 16.6 % 736-9) MONO % (test code = 9.4 % 5905-5) EOS % (test code = 3.9 % 713-8) BASO % (test code = 0.6 % 706-2) GRAN MAT x10^3(ANC) 4.30 10*3/uL 1.88-7.09 (test code = 8321475718) IMM GRAN x10^3 (test <0.03 0-0.06 code = 5809769045) LYMPH x10^3 (test code 1.03 10*3/uL 1.32-3.29 L = 731-0) MONO x10^3 (test code 0.58 10*3/uL 0.33-0.92 = 742-7) EOS x10^3 (test code = 0.24 10*3/uL 0.03-0.39 711-2) BASO x10^3 (test code 0.04 10*3/uL 0.01-0.07 = 704-7) Lab Interpretation Abnormal (test code = 33468-7) [facility] [id number] 00:36:00 Test Item Value Reference Range Interpretation Comments LACTIC ACID (test code = 2.12 mmol/L 0462550649) [facility]
--- NOTE | 2023-02-03 15:14 | RAD REPORT ---
EXAM DESCRIPTION: US - Transvaginal OB - 02/03/2023 3:03 pm CLINICAL HISTORY: vaginal bleeding, 7 weeks lmp COMPARISON: OBSTETRICAL COMPLETE dated 03/29/2008 FINDINGS: Single IUP identified. pole and yolk sac present. pole measures 8 millimeters which is consistent with 6 weeks 5 day. Neither ovary visualized. No adnexal masses. heart rate measured at 115 beats/minute. IMPRESSION: Single IUP with positive heart tones measuring 6 week 5 day with JOEL of 09/24/2023 . Neither ovary visualized possibly due to bowel gas.
[2023-02-03 15:32] LABS: Absolute Lymphocytes (CBC) 1.9 K/uL (0.7-4.9); Hematocrit 32.8 % (36.0-45.0); Lymphocytes % 29.7 % (15.3-44.8); MCV 75.2 fL (80-100); MPV 8.2 fL (7.6-11.3); RBC Red Blood Cell Count 4.35 M/uL (3.86-4.86); Specific Gravity 1.021 (1.005-1.030)
[2023-02-03 15:34] LABS: Specific Gravity 1.022 (1.005-1.030); Urine Bacteria <20 /HPF (<20); Urine Bilirubin NEGATIVE (Negative); Urine Blood 3+ (OVER) (Negative); Urine Clarity Clear (Clear); Urine Color Yellow (Yellow); Urine Glucose TRACE (Negative); Urine Mucus Slight /HPF (None Seen); Urine Protein TRACE (Negative); Urine RBC >50 /HPF (None Seen); Urine Urobilinogen Normal (Normal)
[2023-02-03 16:02] LABS: Potassium 3.5 mEq/L (3.5-5.1)
--- NOTE | 2023-02-03 16:41 | ER ---
Nurse's Notes [facility] Name: Rabia Sosa Age: 42 yrs Sex: Female : 1980 Arrival Date: 02/03/2023 Time: 13:44 Bed 4 Private MD: Bob Mcnamara V Diagnosis: Threatened Presentation: 02/03 14:08 Chief complaint: Patient states: G4, P2. Started having vaginal bleeding (like a ll1 period) 1 hour [employer]. Approximate 6-7 weeks . Coronavirus screen: Client denies travel out of the [place] in the last 14 days. At this time, the client does not indicate any symptoms associated with coronavirus-19. Ebola Screen: Patient denies travel to an Ebola-affected area in the 21 days before illness onset. Initial Sepsis Screen: Does the patient meet any 2 criteria? No. Patient's initial sepsis screen is negative. Does the patient have a suspected source of infection? Yes: Other: pelvic pain/vaginal bleeding. Risk Assessment: Do you want to hurt yourself or someone else? Patient reports no desire to harm self or others. Onset of symptoms was February 03, 2023. 14:08 Method Of Arrival: Ambulatory ll1 14:08 Acuity: JULIUS 3 ll1 Triage Assessment: 14:11 General: Appears uncomfortable, Behavior is calm, cooperative, appropriate for age. ll1 Pain: Complains of pain in pelvic Quality of pain is described as aching, crampy. : Reports cramping, pain vaginal bleeding that is. Historical: - Allergies: 14:09 Codeine; ll1 - PMHx: 14:09 GERD; Diabetes mellitus; trigeminal neuralgia; ll1 - PSHx: 14:09 Appendectomy; ovarian torsion; lymphectomy L [facility]; ll1 - Immunization history:: Adult Immunizations up to date. - Social history:: Smoking status: Patient denies any tobacco usage or history of. Screenin:29 [facility] ED Fall Risk Assessment (Adult) History of falling in the last 3 months, ld1 including since admission No falls in past 3 months (0 pts). Abuse screen: Denies threats or abuse. Denies injuries from another. Nutritional screening: No deficits noted. Tuberculosis screening: No symptoms or risk factors identified. Assessment: 15:29 General: Appears in no apparent distress. comfortable, Behavior is calm, cooperative, ld1 appropriate for age. Pain: Denies pain. Neuro: Level of Consciousness is awake, alert, obeys commands, Oriented to person, place, time, situation. Cardiovascular: Capillary refill < 3 seconds Patient's skin is warm and dry. Respiratory: Airway is patent Respiratory effort is even, unlabored. GI: Abdomen is round non-distended, obese. : Reports vaginal bleeding that is bright red. EENT: No signs and/or symptoms were reported regarding the EENT system. Derm: No signs and/or symptoms reported regarding the dermatologic system. Musculoskeletal: No signs and/or symptoms reported regarding the musculoskeletal system. Vital Signs: 14:08 BP 160 / 88; Pulse 95; Resp 18; Temp 98.4; Pulse Ox 100% ; Weight 230.42 kg; Height 4 ll1 ft. 11 in. ; Pain 4/10; 15:29 BP 142 / 68; Pulse 75; Resp 18; Pulse Ox 99% on R/A; ld1 16:16 BP 147 / 61; Pulse 59; Resp 18; Pulse Ox 100% on R/A; ld1 14:08 Body Mass Index 102.60 (230.42 kg, 149.86 cm) ll1 14:08 Pain Scale: Adult ll1 ED Course: 13:47 Patient arrived in ED. mr 13:47 Bob Mcnamara MD is Private Physician. mr 13:52 [facility] jmm 13:52 Darren Aguilar MD is Attending Physician. jmm 14:09 Triage completed. ll1 14:11 Arm band placed on Patient placed in an exam room, on a stretcher. ll1 14:58 Gabi Leiva, BALTAZAR is Primary Nurse. ld1 15:05 US Transvaginal Ob In Process Unspecified. EDMS 15:29 Patient has correct armband on for positive identification. Placed in gown. Bed in low ld1 position. Call light in reach. Side rails up X2. organizational psychologist on. Pulse ox on. NIBP on. Door closed. Noise minimized. Warm blanket given. 15:29 No provider procedures requiring assistance completed. Inserted saline lock: 20 gauge ld1 in left antecubital area, using aseptic technique. Blood collected. 15:30 Urinalysis w/ reflexes Sent. ld1 15:30 Abo/rh Typing Sent. ld1 15:30 Basic Metabolic Panel Sent. ld1 15:30 CBC with Diff Sent. ld1 15:30 Test, Urine Sent. ld1 15:30 Quantitative Hcg Sent. ld1 16:50 IV discontinued, intact, bleeding controlled, No redness/swelling at site. ld1 Administered Medications: No medications were administered Medication: 15:29 VIS not applicable for this client. ld1 Outcome: 15:29 Discharged to home ld1 16:40 Discharge ordered by . dereck 16:50 Condition: stable ld1 16:50 Discharge instructions given to patient, Instructed on discharge instructions, follow up and referral plans. Demonstrated understanding of instructions, follow-up care. 16:50 Patient left the ED. ld1 Signatures: Dispatcher [employer] EDJames Coker PA PA jmm Rivera, Mary mr Gordo Hernandez, RN RN ll1 Gabi Leiva RN RN ld1
--- NOTE | 2023-02-03 16:41 | EDPHYS ---
Physician Documentation [facility] Name: Rabia Sosa Age: 42 yrs Sex: Female : 1980 Arrival Date: 02/03/2023 Time: 13:44 Bed 4 Private MD: Bob Mcnamara V ED Physician Darren Aguilar HPI: 02/03 14:09 This 42 yrs old Black Female presents to ER via Ambulatory with complaints of Vaginal jmm Bleeding, + Preg <12wks. 14:09 Is a 42-year-old female with history of GERD, diabetes mellitus, trigeminal neuralgia jmm that is a with LMP 7 weeks prior the presents emerged part with complaints of vaginal bleeding cleared denies clots. Currently does not have care. Denies weakness. Denies fever. Denies dysuria. Historical: - Allergies: 14:09 Codeine; ll1 - PMHx: 14:09 GERD; Diabetes mellitus; trigeminal neuralgia; ll1 - PSHx: 14:09 Appendectomy; ovarian torsion; lymphectomy L armpit area; ll1 - Immunization history:: Adult Immunizations up to date. - Social history:: Smoking status: Patient denies any tobacco usage or history of. ROS: 14:09 Constitutional: Negative for fever, chills, and weight loss, Cardiovascular: Negative jmm for chest pain, palpitations, and edema, Respiratory: Negative for shortness of breath, cough, wheezing, and pleuritic chest pain. 14:09 : Positive for vaginal bleeding. 14:09 All other systems are negative. Exam: 14:09 Constitutional: This is a well developed, well nourished patient who is awake, alert, jmm and in no acute distress. Head/Face: atraumatic. Eyes: EOMI, no conjunctival erythema appreciated ENT: Moist Mucus Membranes Neck: Trachea midline, Supple Chest/axilla: Normal chest wall appearance and motion. Cardiovascular: Regular rate and rhythm. No edema appreciated Respiratory: Normal respirations, no respiratory distress appreciated Abdomen/GI: Non distended Back: Normal ROM Skin: General appearance color normal MS/ Extremity: Moves all extremities, no obvious deformities appreciated, no edema noted to the lower extremities Neuro: Awake and alert Psych: Behavior is normal, Mood is normal, Patient is cooperative and pleasant Vital Signs: 14:08 BP 160 / 88; Pulse 95; Resp 18; Temp 98.4; Pulse Ox 100% ; Weight 230.42 kg; Height 4 ll1 ft. 11 in. ; Pain 4/10; 15:29 BP 142 / 68; Pulse 75; Resp 18; Pulse Ox 99% on R/A; ld1 16:16 BP 147 / 61; Pulse 59; Resp 18; Pulse Ox 100% on R/A; ld1 14:08 Body Mass Index 102.60 (230.42 kg, 149.86 cm) ll1 14:08 Pain Scale: Adult ll1 MDM: 14:09 Patient medically screened. [facility] 16:40 Differential diagnosis: ectopic . Data reviewed: vital signs, nurses notes, [facility] lab test result(s), radiologic studies, ultrasound. Counseling: I had a detailed discussion with the patient and/or guardian regarding: the historical points, exam findings, and any diagnostic results supporting the discharge/admit diagnosis, lab results, the need for outpatient follow up, to return to the emergency department if symptoms worsen or persist or if there are any questions or concerns that arise at home. 02/03 14:13 Order name: Abo/rh Typing; Complete Time: 16:38 [facility] 02/03 14:13 Order name: Basic Metabolic Panel; Complete Time: 16:03 [facility] 02/03 14:13 Order name: CBC with Diff; Complete Time: 15:34 [facility] 02/03 14:13 Order name: Test, Urine; Complete Time: 15:34 [facility] 02/03 14:13 Order name: Quantitative Hcg; Complete Time: 16:03 [facility] 02/03 14:13 Order name: Urinalysis w/ reflexes; Complete Time: 15:35 [facility] 02/03 14:13 Order name: US Transvaginal Ob; Complete Time: 15:18 [facility] 02/03 14:13 Order name: IV Saline Lock; Complete Time: 15:30 [facility] 02/03 14:13 Order name: Labs collected and sent; Complete Time: 15:30 [facility] 02/03 14:13 Order name: NPO; Complete Time: 14:43 [facility] Administered Medications: No medications were administered Disposition Summary: 02/03/23 16:40 Discharge Ordered Location: Home [facility] Condition: Stable [facility] Diagnosis - Threatened [facility] Followup: [facility] - With: Private Physician - When: 2 - 3 days - Reason: Recheck today's complaints, Continuance of care, Re-evaluation by your physician Discharge Instructions: - Discharge Summary Sheet dereck - Threatened Miscarriage dereck Forms: - Medication Reconciliation Form dereck - Thank You Letter dereck - Antibiotic Education dereck - Prescription Opioid Use dereck Signatures: Dispatcher [employer] James Chavarria PA PA jmm Lewis, Lynsay, RN RN ll1
[2023-02-03 16:57] VITALS: TEMP 98.4
[2023-02-03 16:59] VITALS: BP 147/61; O2SAT 100
== END 2023-02-03 16:50 | disposition home or self-care (01) ==
LOC: ER 13:44
DX: O20.0 Threatened abortion (principal); Z3A.01 Less than 8 weeks gestation of pregnancy; Z88.5 Allergy status to narcotic agent
CPT/HCPCS: 36415; 76817; 80048; 81001; 81025; 84702; 85025; 86900; 86901; 99284